=== PATIENT | male | born 1990 ===

== ENCOUNTER 2017-07-21 17:51 | Inpatient (IN) | payer OTHER, SELFPAY ==
[2017-07-21 17:52] VITALS: BMI 25.2
--- NOTE | 2017-07-21 20:38 | CT ---
EXAM: CT Head Without Intravenous Contrast EXAM DATE/TIME: 07/21/2017 6:34 PM CLINICAL HISTORY: The patient age is 27 years old and is male; Signs and symptoms; Dizziness and numbness / parasthesia; Right; Patient HX: Dizzy 2-3 days, numbness right side of face Facility exam id and description: Ct heads head w/o contrast TECHNIQUE: Axial computed tomography images of the head/brain without intravenous contrast. All CT scans at this facility use one or more dose reduction techniques, viz.: automated exposure control; ma/kV adjustment per patient size (including targeted exams where dose is matched to indication; i.e. head); or iterative reconstruction technique. COMPARISON: No relevant prior studies available. FINDINGS: Brain: Hypodense vasogenic edema or gliosis is identified within the left parietal white matter. Infection or underlying lesion cannot be excluded. The white-forrest differentiation is otherwise preserved. No acute intracranial hemorrhage is seen. Midline shift: There is no midline shift. Ventricles: No ventriculomegaly. Bones/joints: The calvarium demonstrates no evidence for a depressed fracture. Soft tissues: Calcifications and identified within the soft tissues of the left ear. Sinuses: Unremarkable as visualized. No acute sinusitis. Mastoid air cells: No mastoid effusion. IMPRESSION: 1. Hypodense vasogenic edema or gliosis is identified within the left parietal white matter. Infection or underlying lesion cannot be excluded. An MRI of the brain with/without contrast is recommended. 2. No acute intracranial hemorrhage.
[2017-07-21 21:43] LABS: BASO # 0.04 K/mm3 (0.0-2.0); BASO % 0.6 % (0.0-3.0); EOS # 0.1 (0.0-0.7); GRAN # 3.95 (1.4-6.5); GRAN % 57.6 % (50.0-68.0); HEMATOCRIT 42.9 % (42.0-52.0); LYMPH # 2.3 (1.2-3.4); LYMPH % 33.7 % (22.0-35.0); MEAN CELL VOLUME 90.7 fl (80.0-105.0); MEAN CORPUSCULAR HEMOGLOBIN 32.6 pg (25.0-35.0); MEAN CORPUSCULAR HGB CONC 35.9 g/dl (31.0-37.0); MEAN PLATELET VOLUME 10.5 fl (7.0-11.0); MONO # 0.4 (0.1-0.6); MONO % 6.1 % (1.0-6.0); RED CELL DISTRIBUTION WIDTH 12.1 % (11.5-14.5); WHITE BLOOD COUNT 6.9 10^3/ul (4.5-11.0)
[2017-07-21 21:53] LABS: ALB/GLOB RATIO 1.6 (1.1-1.8); ALKALINE PHOSPHATASE 63 U/L (38-126); ALT/SGPT 37 U/L (7-56); AST/SGOT 25 U/L (17-59); BILIRUBIN,TOTAL 0.8 mg/dL (0.2-1.3); BLOOD UREA NITROGEN 20 mg/dL (7-21); CALCIUM 9.9 mg/dL (8.4-10.5); CARBON DIOXIDE 32 mmol/L (21-33); CHLORIDE 101 mmol/L (98-107); GFR AFRICAN-AMERICAN > 60; GLUCOSE,RANDOM 110 mg/dL (70-110); POTASSIUM 4.5 mmol/L (3.6-5.0); SODIUM 141 mmol/L (132-148); TOTAL PROTEIN 7.9 g/dL (5.8-8.3)
--- NOTE | 2017-07-21 22:54 | ED PDOC ---
Arrival/HPI - General Chief Complaint: Weakness/Neurological Deficit Time Seen by Provider: 07/21/17 18:12 Historian: Patient - History of Present Illness Narrative History of Present Illness (Text): 07/21/17 22:54 27 year old male who presents to the ED complaining of right-sided facial numbness and dizziness for the past 2 days. Patient states when he stands up, he feels dizzy and near-syncopal. Patient states the whole right-sided of his face feels numb, including his jaw, cheek, and upper face, however he denies any facial weakness. Patient denies any recent fall or trauma. 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 Patient states he is otherwise healthy, denies any significant past medical history. Patient denies any nausea, vomiting, fever, chills, double vision, incontinence, cough, or any other complaints. Time/Duration: < week (2 days) Symptom Onset: Gradual Symptom Course: Unchanged Activities at Onset: Light Context: Home Past Medical History - Provider Review Nursing Documentation Reviewed: Yes - Psychiatric Hx Psychophysiologic Disorder: No Hx Substance Use: No - Surgical History Other/Comment: unspecified abdominal surgery Family/Social History - Physician Review Nursing Documentation Reviewed: Yes Family/Social History: Unknown Family HX Smoking Status: Never Smoked Hx Alcohol Use: No Hx Substance Use: No Allergies/Home Meds Allergies/Adverse Reactions: Allergies apple Allergy (Verified 07/21/17 17:59) RASH peanut Allergy (Verified 07/21/17 17:59) RASH pineapple Allergy (Verified 07/21/17 17:59) RASH Home Medications: Home Meds Medication Instructions Recorded Confirmed No Known Home Med 07/21/17 07/21/17 Review of Systems - Physician Review All systems were reviewed & negative as marked: Yes - Review of Systems Constitutional: Normal. absent: Fevers Eyes: Normal. absent: Vision Changes ENT: Normal Respiratory: Normal. absent: SOB, Cough Cardiovascular: Other (+near-syncopal). absent: Chest Pain Gastrointestinal: Normal. absent: Abdominal Pain, Vomiting Genitourinary Male: Normal. absent: Dysuria, Frequency, Hematuria, Urinary Output Changes Musculoskeletal: Normal. absent: Back Pain, Neck Pain Skin: Normal. absent: Rash Neurological: Headache, Dizziness, Other (+right-sided facial weakness) Endocrine: Normal Hemo/Lymphatic: Normal Psychiatric: Normal Physical Exam Vital Signs Reviewed: Yes Vital Signs Temp Pulse Resp BP Pulse Ox 07/22/17 00:17 82 16 126/84 100 07/21/17 23:52 80 16 125/75 99 07/21/17 21:52 79 16 124/77 99 07/21/17 19:52 83 16 125/77 98 07/21/17 18:00 97.9 F 80 16 123/79 99 Temperature: Afebrile Blood Pressure: Normal Pulse: Regular Respiratory Rate: Normal Appearance: Positive for: Well-Appearing, Non-Toxic, Comfortable Pain Distress: None Mental Status: Positive for: Alert and Oriented X 3 - Systems Exam Head: Present: Atraumatic, Normocephalic Pupils: Present: PERRL Extroacular Muscles: Present: Other (Questionable lateral nystagmus) Conjunctiva: Present: Normal Ears: Present: Normal, NORMAL TM, Normal Canal Mouth: Present: Moist Mucous Membranes Pharnyx: Present: Normal. No: ERYTHEMA, EXUDATE, TONSILS ENLARGED, Peritonsilar Swelling, Uvular Deviation, Muffled/Hoarse Voice, Strider, Soft Palate/Uvular Edema Nose (External): Present: Atraumatic Nose (Internal): Present: Other (Right-sided nasal congestion) Neck: Present: Normal Range of Motion. No: Meningeal Signs, MIDLINE TENDERNESS , Paraspinal Tenderness Respiratory/Chest: Present: Clear to Auscultation, Good Air Exchange. No: Respiratory Distress, Accessory Muscle Use Cardiovascular: Present: Regular Rate and Rhythm, Normal S1, S2. No: Murmurs Abdomen: Present: Normal Bowel Sounds. No: Tenderness, Distention, Peritoneal Signs Upper Extremity: Present: Normal Inspection, Normal ROM, NORMAL PULSES, Neurovascularly Intact, Capillary Refill < 2s. No: Cyanosis, Edema, Tenderness , Swelling, Temperature Abnormalties Lower Extremity: Present: Normal Inspection, NORMAL PULSES, Normal ROM, Neurovascularly Intact, Capillary Refill < 2 s. No: Edema, Tenderness, Swelling , Erythema, Deformity, Temperature Abnormalties Neurological: Present: GCS=15, CN II-XII Intact, Speech Normal, Motor Func Grossly Intact (5/5 strength bilateral upper extremities), Normal Cerebellar Funct, Gait Normal (No significant ataxia upon walking), Memory Normal, Other ( Right-sided dysmetria finger to nose, ). No: Normal Sensory Function (Numbness to right face as compared to left face) Skin: Present: Warm, Dry, Normal Color. No: Rashes Psychiatric: Present: Alert, Oriented x 3, Normal Insight, Normal Concentration Medical Decision Making ED Course and Treatment: 07/21/17 22:54 Impression: 27 year old male c/o right-sided facial weakness and dizziness. Plan: -- CT Head w/o contrast -- Labs, HIV -- Reassess and disposition Progress Notes: CT scan shows mass in left parietal area, glious vs. infectious. Pt does not have a PMD or insurance, therefore pt will be admitted for MRI, neurological consult, and workup of mass due to acute symptoms. Case was discussed with hospitalist medical director and house physician Dr. Ramos. Pt will be admitted to the hospitalist service. - Lab Interpretations Lab Results: 07/21/17 21:20 07/21/17 21:20 Lab Results 07/21/17 21:20: Sodium 141, Potassium 4.5, Chloride 101, Carbon Dioxide 32, Anion Gap 13, BUN 20, Creatinine 1.1, Est GFR ( Amer) > 60, Est GFR (Non- Af Amer) > 60, Random Glucose 110, Calcium 9.9, Total Bilirubin 0.8, AST 25, ALT 37, Alkaline Phosphatase 63, Total Protein 7.9, Albumin 4.8, Globulin 3.1, Albumin/Globulin Ratio 1.6 07/21/17 21:20: RPR Nonreactive 07/21/17 21:20: HIV 1&2 Antibody Screen Negative 07/21/17 21:20: WBC 6.9 D, RBC 4.73, Hgb 15.4, Hct 42.9, MCV 90.7, MCH 32.6, MCHC 35.9, RDW 12.1, Plt Count 184, MPV 10.5, Gran % 57.6, Lymph % (Auto) 33.7, [place] % (Auto) 6.1 H, Eos % (Auto) 2.0, Baso % (Auto) 0.6, Gran # 3.95, Lymph # 2.3, [place] # 0.4, Eos # 0.1, Baso # 0.04 07/21/17 00:00: Hepatitis A IgM Ab Negative, Hep Bs Antigen Negative, Hep B Core IgM Ab Negative, Hepatitis C Antibody Negative I have reviewed the lab results: Yes - RAD Interpretation Narrative RAD Interpretations (Text): CT Head shows: Brain: Hypodense vasogenic edema or gliosis is identified within the left parietal white matter. Infection or underlying lesion cannot be excluded. The white-forrest differentiation is otherwise preserved. No acute intracranial hemorrhage is seen. Midline shift: There is no midline shift. Ventricles: No ventriculomegaly. Bones/joints: The calvarium demonstrates no evidence for a depressed fracture. Brain: Hypodense vasogenic edema or gliosis is identified within the left parietal white matter. Infection or underlying lesion cannot be excluded. The white-forrest differentiation is otherwise preserved. No acute intracranial hemorrhage is seen. Midline shift: There is no midline shift. Ventricles: No ventriculomegaly. Bones/joints: The calvarium demonstrates no evidence for a depressed fracture. Radiology Orders: 07/21/17 18:34 HEAD W/O CONTRAST [CT] Stat Manager College: Radiologist - Medication Orders Current Medication Orders: Acetaminophen (Tylenol 325mg Tab) 650 mg PO Q6H PRN PRN Reason: Headache Methylprednisolone 1 gm/ (Sodium Chloride) 250 mls @ 500 mls/hr IV DAILY [facility] Stop: 07/24/17 10:29 Last Admin: 07/22/17 14:31 Dose: 500 mls/hr eMAR Start Stop Document 07/22/17 14:31 LMN (Rec: 07/22/17 14:31 LMN [facility] [id number]) Intravenous Solution Start Date 07/22/17 Start Time 14:31 Pantoprazole Sodium (Protonix Ec Tab) 40 mg PO 0600 [facility] Last Admin: 07/22/17 07:38 Dose: 40 mg Discontinued Medications Acetaminophen (Tylenol 325mg Tab) 325 mg PO ONCE ONE Stop: 07/22/17 07:21 Last Admin: 07/22/17 07:38 Dose: Acetaminophen (Tylenol 325mg Tab) 650 mg PO ONCE ONE Stop: 07/22/17 08:56 Last Admin: 07/22/17 08:57 Dose: 650 mg MAR Pain/Vitals Document 07/22/17 08:57 LMN (Rec: 07/22/17 08:57 [place] [facility] [id number] Pain Reassessment Is This A Pain ReAssessment? No Presence of Pain Presence of Pain Yes Re-Assess: MAR Pain/Vitals Document 07/22/17 09:57 LMN (Rec: 07/22/17 11:14 [place] [facility] [id number] Pain Reassessment Is This A Pain ReAssessment? Yes Sleep Is patient sleeping during reassessment? No Presence of Pain Presence of Pain Yes Pain Scale Used Pain Scale Used Numeric Location Left, Right or Bilateral Bilateral Pain Location Body Home Hospice Rn Description Throbbing Magnesium Sulfate 2 gm/ Sodium (Chloride) 104 mls @ 102 mls/hr IVPB ONCE ONE Stop: 07/22/17 08:39 Last Admin: 07/22/17 12:25 Dose: 102 mls/hr eMAR Start Stop Document 07/22/17 12:25 LMN (Rec: 07/22/17 13:14 LMN [facility] [id number] Intravenous Solution Start Date 07/22/17 Start Time 12:25 Valproate Sodium 500 mg/ (Sodium Chloride) 105 mls @ 100 mls/hr IVPB Q8 [facility] Last Admin: 07/22/17 11:12 Dose: 100 mls/hr eMAR Start Stop Document 07/22/17 11:12 LMN (Rec: 07/22/17 11:13 LMN [facility] [id number] Intravenous Solution Start Date 07/22/17 Start Time 11:12 Levetiracetam (Keppra) 500 mg PO STAT STA Stop: 07/21/17 23:50 Last Admin: 07/22/17 00:08 Dose: 500 mg Lidocaine HCl (Lidocaine 1% (20ml)) 20 ml IJ ONCE STA Stop: 07/22/17 13:25 - Scribe Statement The provider has reviewed the documentation as recorded by the Janell Gtz Provider Scribe Attestation: All medical record entries made by the Scribe were at my direction and personally dictated by me. I have reviewed the chart and agree that the record accurately reflects my personal performance of the history, physical exam, medical decision making, and the department course for this patient. I have also personally directed, reviewed, and agree with the discharge instructions and disposition. Disposition/Present on Arrival - Present on Arrival Any Indicators Present on Arrival: No History of DVT/PE: No History of Uncontrolled Diabetes: No Urinary Catheter: No History of Decub. Ulcer: No History Surgical Site Infection Following: None - Disposition Have Diagnosis and Disposition been Completed?: Yes Diagnosis: Mass, brain Disposition: HOSPITALIZED Disposition Time: 22:00 Patient Plan: Admission Patient Problems: Current Active Problems Problem Status Onset Demyelinating changes in brain Acute Condition: GOOD
--- NOTE | 2017-07-21 23:46 | CP.PCM.HP ---
History of Present Illness - History of Present Illness History of Present Illness: CC: "I was feeling dizzy" HPI: Patient is a 27 year old male with past medical history asthma presents to the ED for dizziness and right facial numbness. Patient states that he was experiencing constant right sided facial numbness for the past few days. Never experienced this before. The entire right of his face is numb including forehead cheek and jaw area. After the onset of the facial numbness, patient states that he has been intermittently feeling dizzy. Feels like he is spinning. 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 Denies any fevers, chills, N/V, headaches, weakness, facial pain, cp, palpitations, sob, abdominal pain, urinary symptoms, changes in bowel habits. Denies any recent falls or trauma or hx of concussions. PMD: None Allergies: apple, peanut, pineapple Medications: Albuterol (last use a few years ago) Medical Hx: Asthma Surgical Hx: Cholecystectomy 9 years ago Social Hx: Denies alcohol, tobacco, drugs use; works at a [id number], denies having multiple sexual partners Family Hx: Denies any hx of cancer Present on Admission - Present on Admission Any Indicators Present on Admission: No Review of Systems - Review of Systems All systems: reviewed and no additional remarkable complaints except - Constitutional Constitutional: absent: Chills, Fever - EENT Eyes: absent: Blurred Vision, Change in Vision Ears: Dizziness. absent: Abnormal Hearing, Disequilibrium - Cardiovascular Cardiovascular: absent: Chest Pain, Dyspnea, Dyspnea on Exertion, Lightheadedness, Palpitations - Respiratory Respiratory: absent: Cough, Dyspnea, Wheezing - Gastrointestinal Gastrointestinal: absent: Abdominal Pain, Change in Bowel Habits, Constipation, Nausea, Vomiting - Genitourinary Genitourinary: absent: Dysuria, Hematuria - Musculoskeletal Musculoskeletal: Numbness. absent: Abnormal Gait, Limited Range of Motion, Tingling - Neurological Neurological: Dizziness, Numbness. absent: Frequent Falls, Headaches, Tingling , Tremor - Psychiatric Psychiatric: absent: Anxiety, Depression Past Patient History - Past Social History Smoking Status: Never Smoked - PSYCHIATRIC Hx Psychophysiologic Disorder: No Hx Substance Use: No Meds Allergies/Adverse Reactions: Allergies Allergy/AdvReac Type Severity Reaction Status Date / Time apple Allergy RASH Verified 07/21/17 17:59 peanut Allergy RASH Verified 07/21/17 17:59 pineapple Allergy RASH Verified 07/21/17 17:59 Physical Exam - Constitutional Appears: Well, Non-toxic, No Acute Distress - Head Exam Head Exam: ATRAUMATIC, NORMAL INSPECTION - Eye Exam Eye Exam: EOMI, Normal appearance. absent: Conjunctival injection, Nystagmus Pupil Exam: NORMAL ACCOMODATION, PERRL - ENT Exam ENT Exam: Mucous Membranes Moist, Normal Oropharynx. absent: Normal External Ear Exam Additional comments: Deformity of Left ear noted : Perichondrial hematoma - Neck Exam Neck exam: Positive for: Full Rom - Respiratory Exam Respiratory Exam: Clear to Auscultation Bilateral, NORMAL BREATHING PATTERN. absent: Rhonchi, Wheezes - Cardiovascular Exam Cardiovascular Exam: REGULAR RHYTHM, +S1, +S2 - GI/Abdominal Exam GI & Abdominal Exam: Normal Bowel Sounds, Soft. absent: Guarding, Rebound, Rigid, Tenderness - Extremities Exam Extremities exam: Positive for: full ROM, normal inspection, pedal pulses present. Negative for: calf tenderness, pedal edema, tenderness - Back Exam Back exam: NORMAL INSPECTION. absent: CVA tenderness (L), CVA tenderness (R), rash noted - Neurological Exam Neurological exam: Alert, CN II-XII Intact, Oriented x3, Reflexes Normal - Psychiatric Exam Psychiatric exam: Normal Affect, Normal Mood - Skin Skin Exam: Dry, Normal Color, Warm Additional comments: Multiple tattoos on chest, arms, and back Results - Vital Signs Recent Vital Signs: Last Vital Signs Temp 97.9 F 07/21/17 18:00 Pulse 80 07/21/17 18:00 Resp 16 07/21/17 18:00 BP 123/79 07/21/17 18:00 Pulse Ox 99 07/21/17 18:00 - Labs Result Diagrams: 07/21/17 21:20 07/21/17 21:20 Labs: Laboratory Results - last 24 hr 07/21/17 07/21/17 21:20 21:20 WBC 6.9 D RBC 4.73 Hgb 15.4 Hct 42.9 MCV 90.7 MCH 32.6 MCHC 35.9 RDW 12.1 Plt Count 184 MPV 10.5 Gran % 57.6 Lymph % (Auto) 33.7 [place] % (Auto) 6.1 H Eos % (Auto) 2.0 Baso % (Auto) 0.6 Gran # 3.95 Lymph # 2.3 [place] # 0.4 Eos # 0.1 Baso # 0.04 Sodium 141 Potassium 4.5 Chloride 101 Carbon Dioxide 32 Anion Gap 13 BUN 20 Creatinine 1.1 Est GFR ( Amer) > 60 Est GFR (Non-Af Amer) > 60 Random Glucose 110 Calcium 9.9 Total Bilirubin 0.8 AST 25 ALT 37 Alkaline Phosphatase 63 Total Protein 7.9 Albumin 4.8 Globulin 3.1 Albumin/Globulin Ratio 1.6 Assessment & Plan - Assessment and Plan (Free Text) Assessment: 27 year old male with past medical history of asthma presents with dizziness and right sided facial numbness. Plan: 1. Right Sided Facial Numbness and dizziness -Likely 2/2 brain lesion r/o mild traumatic brain injury vs infectious etiology -Stable, afebrile -Will Admit inpatient -CT head showing hypodense vasogenic edema or gliosis within left parietal white matter -MRI brain with contrast ordered, CXR ordered -Keppra 500mg PO STAT for seizure prophylaxis, then 500mg BID -F/U am Labs, HIV, Hep panel, ESR, CRP, RPR, lyme titers -Orthostatics ordered -Seizure precautions, fall precautions -Neuro checks q4H -Neurology consulted, f/u recommendations -ID consulted, f/u recommendations GI/DVT ppx -Protonix 40mg daily -SCDs Plan discussed with Dr Ramos
[2017-07-22 06:56] LABS: BASO # 0.03 K/mm3 (0.0-2.0); BASO % 0.7 % (0.0-3.0); EOS # 0.1 (0.0-0.7); GRAN # 2.26 (1.4-6.5); GRAN % 51.5 % (50.0-68.0); HEMATOCRIT 40.8 % (42.0-52.0); LYMPH # 1.5 (1.2-3.4); LYMPH % 35.2 % (22.0-35.0); MEAN CELL VOLUME 90.3 fl (80.0-105.0); MEAN CORPUSCULAR HEMOGLOBIN 31.4 pg (25.0-35.0); MEAN CORPUSCULAR HGB CONC 34.8 g/dl (31.0-37.0); MEAN PLATELET VOLUME 10.5 fl (7.0-11.0); MONO # 0.4 (0.1-0.6); MONO % 9.6 % (1.0-6.0); RED CELL DISTRIBUTION WIDTH 12.2 % (11.5-14.5); WHITE BLOOD COUNT 4.4 10^3/ul (4.5-11.0)
[2017-07-22 07:13] LABS: ALB/GLOB RATIO 1.4 (1.1-1.8); ALKALINE PHOSPHATASE 62 U/L (38-126); ALT/SGPT 38 U/L (7-56); AST/SGOT 20 U/L (17-59); BILIRUBIN,TOTAL 0.5 mg/dL (0.2-1.3); BLOOD UREA NITROGEN 22 mg/dL (7-21); CALCIUM 9.3 mg/dL (8.4-10.5); CARBON DIOXIDE 29 mmol/L (21-33); CHLORIDE 106 mmol/L (98-107); GFR AFRICAN-AMERICAN > 60; GLUCOSE,RANDOM 97 mg/dL (70-110); MAGNESIUM 2.2 mg/dL (1.7-2.2); PHOSPHOROUS 4.7 mg/dL (2.5-4.5); POTASSIUM 3.7 mmol/L (3.6-5.0); SODIUM 142 mmol/L (132-148)
[2017-07-22] MEDS ORDERED: Magnesium Sulfate 2 GM in Sodium Chloride 0.9% 100 ML IVPB ONE ×2 (07:34→07:38)
[2017-07-22] MEDS: Pantoprazole 40 mg EC Tab PO SCH (07:38)
[2017-07-22] MEDS ORDERED: Valproate 500 MG in Sodium Chloride 0.9% 100 ML IVPB SCH (07:45)
[2017-07-22] MEDS ORDERED: Gadodiamide 287 MG/ML VIAL (15ML) IV ONE (10:21)
--- NOTE | 2017-07-22 11:27 | MRI ---
PROCEDURE: MRI BRAIN WITH AND WITHOUT CONTRAST HISTORY: r/o brain mass COMPARISON: CT 07/21/2017 TECHNIQUE: Multiplanar, multisequence MR images of the brain were obtained with and without intravenous contrast enhancement. 15 cc of Omniscan FINDINGS: HEMORRHAGE: None DWI: No evidence of an acute or early subacute infarction. BRAIN PARENCHYMA: There is a large area of abnormal signal intensity in the left parietal white matter which corresponds to the CT finding. This measures 13 x 23 mm. In addition there is extensive periventricular white matter abnormality especially along the temporal and occipital horns of both lateral ventricles. Smaller focal lesions are seen in the deep white matter. The findings are suspicious for demyelinating disease. There is no evidence of a discrete mass. There is no evidence of an enhancing mass. There is minimal linear hemosiderin deposition at the edge of the larger left parietal lesion. This can be seen on image 17 series 7. This is consistent with an old hemorrhage. There is also a focal lesion in the right inferior cerebellar peduncle seen on image 6 of series 4 and 5. ENHANCEMENT: No abnormal intracranial enhancement. VENTRICLES: Unremarkable. No hydrocephalus. CRANIUM: Unremarkable. ORBITS: Grossly unremarkable. PARANASAL SINUSES/MASTOIDS: Clear VASCULAR SYSTEM: Skull base flow voids intact. OTHER FINDINGS: None . IMPRESSION: Confluent white matter abnormalities in the occipital and temporal horns of both ventricles. Large white matter lesion in the left parietal white matter. There is also a lesion in the right inferior cerebellar peduncle. Findings are suspicious for demyelinating disease.
--- NOTE | 2017-07-22 12:08 | RAD ---
HISTORY: Possible brain mass, r/o mets COMPARISON: No prior. TECHNIQUE: Chest PA and lateral FINDINGS: LUNGS: No active pulmonary disease. PLEURA: No significant pleural effusion identified. No pneumothorax apparent. CARDIOVASCULAR: Normal. OSSEOUS STRUCTURES: No significant abnormalities. VISUALIZED UPPER ABDOMEN: Normal. OTHER FINDINGS: None. IMPRESSION: No active disease.
[2017-07-22] MEDS ORDERED: Lidocaine 1% Inj (20ml) IJ STA (13:24)
--- NOTE | 2017-07-22 13:32 | CP.PCM.PN ---
<Varghese Orellana - Last Filed: 07/22/17 13:29> Subjective - Date & Time of Evaluation Date of Evaluation: 07/22/17 Time of Evaluation: 13:29 - Subjective Subjective: Medicine Progress Note: Pt seen and examined at bedside. Pt states that he does not feel dizzy at present, but feels dizzy if he sits up to fast. Pt states he also has a CASTLE. Pt denied CP, SOB, nausea, vomiting, diarrhea, abdominal pain, constipation, fever , chills, tinnitus, or fatigue. Objective - Vital Signs/Intake and Output Vital Signs (last 24 hours): Temp Pulse Resp BP Pulse Ox 97.8 F 62 16 110/62 98 07/22/17 07:30 07/22/17 07:30 07/22/17 07:30 07/22/17 07:30 07/22/17 07:30 Intake and Output: 07/22/17 07/22/17 06:59 18:59 Intake Total 120 Balance 120 - Medications Medications: Current Medications Acetaminophen (Tylenol 325mg Tab) 650 mg PO Q6H PRN PRN Reason: Headache Valproate Sodium 500 mg/ (Sodium Chloride) 105 mls @ 100 mls/hr IVPB Q8 [facility] Last Admin: 07/22/17 11:12 Dose: 100 mls/hr Methylprednisolone 1 gm/ (Sodium Chloride) 250 mls @ 500 mls/hr IV DAILY [facility] Stop: 07/24/17 10:29 Pantoprazole Sodium (Protonix Ec Tab) 40 mg PO 0600 [facility] Last Admin: 07/22/17 07:38 Dose: 40 mg - Labs Labs: 07/22/17 06:20 07/22/17 06:20 - Constitutional Appears: No Acute Distress - Head Exam Head Exam: ATRAUMATIC, NORMAL INSPECTION, NORMOCEPHALIC - Eye Exam Eye Exam: EOMI, Normal appearance, PERRL. absent: Nystagmus - ENT Exam ENT Exam: Mucous Membranes Moist, Normal Oropharynx. absent: Normal External Ear Exam (left ear edema) - Neck Exam Neck Exam: Full ROM. absent: Lymphadenopathy, Tenderness, Thyromegaly - Respiratory Exam Respiratory Exam: Clear to Ausculation Bilateral. absent: Rales, Rhonchi, Wheezes - Cardiovascular Exam Cardiovascular Exam: RRR, +S1, +S2. absent: Gallop, Rubs, Murmur - GI/Abdominal Exam GI & Abdominal Exam: Soft. absent: Distended, Guarding, Tenderness, Mass, Rebound - Extremities Exam Extremities Exam: Normal Inspection - Back Exam Back Exam: NORMAL INSPECTION - Neurological Exam Neurological Exam: Alert, Awake, CN II-XII Intact (except for CN 7 on the right mostly in maxillary region), Normal Gait, Oriented x3, Reflexes Normal. absent : Motor Sensory Deficit Neuro motor strength exam: Left Upper Extremity: 5, Right Upper Extremity: 5, Left Lower Extremity: 5, Right Lower Extremity: 5 Additional comments: Right sided facial numbness, no facial asymmetry - Psychiatric Exam Psychiatric exam: Normal Affect, Normal Mood - Skin Skin Exam: Dry, Intact, Normal Color, Warm Assessment and Plan - Assessment and Plan (Free Text) Assessment: 27 year old male with past medical history of asthma presents with dizziness and right sided facial numbness. Plan: 1. Right Sided Facial Numbness and dizziness -Likely 2/2 brain lesion r/o mild traumatic brain injury vs infectious etiology -CT head showing hypodense vasogenic edema or gliosis within left parietal white matter -MRI showed confluent white matter abnormalities in the occipital and temporal horns of both ventricles. Large white matter lesion in the left parietal white matter. There is also a lesion in the right inferior cerebellar peduncle. Findings suspicious for demyelinating disease. -CXR negative -ESR, CRP WNL -Hep panel, HIV negative -F/U RPR, lyme titers, orthostatics -Seizure precautions, fall precautions -Neurology consulted F/u EEG Solumedrol 1 gm IVPB daily -ID consulted, f/u recommendations GI/DVT ppx -Protonix 40mg daily -SCDs Pt seen and discussed in detail with Dr. Arredondo. Adair Orellana, PGY1 <Fabian Arredondo - Last Filed: 07/22/17 17:36> Objective - Vital Signs/Intake and Output Vital Signs (last 24 hours): Temp Pulse Resp BP Pulse Ox 97.8 F 62 16 110/62 98 07/22/17 07:30 07/22/17 07:30 07/22/17 07:30 07/22/17 07:30 07/22/17 07:30 Intake and Output: 07/22/17 07/22/17 06:59 18:59 Intake Total 120 480 Balance 120 480 - Medications Medications: Current Medications Acetaminophen (Tylenol 325mg Tab) 650 mg PO Q6H PRN PRN Reason: Headache Methylprednisolone 1 gm/ (Sodium Chloride) 250 mls @ 500 mls/hr IV DAILY [facility] Stop: 07/24/17 10:29 Last Admin: 07/22/17 14:31 Dose: 500 mls/hr Pantoprazole Sodium (Protonix Ec Tab) 40 mg PO 0600 [facility] Last Admin: 07/22/17 07:38 Dose: 40 mg - Labs Labs: 07/22/17 06:20 07/22/17 06:20 Attending/Attestation - Attestation I have personally seen and examined this patient.: Yes I have fully participated in the care of the patient.: Yes I have reviewed all pertinent clinical information, including history, physical exam and plan: Yes Notes (Text): 07/22/17 17:32 Patient was seen and examined with medical geneticist. Agreed with resident assessment and plan. 27 year old male with past medical history of asthma presents with dizziness and right sided facial numbness, has sensory lose on right side of the face.There is no focal deficit.MRI finding are suggestive of Multiple sclerosis , has been started on IV steroid by Neurology, plan for lumber puncture today, we will follow up results. Management plan was discussed in detail with patient Education was provided.
--- NOTE | 2017-07-22 13:50 | PCM.EEG ---
Electroencephalogram Report - Electroencephalogram Report Procedure Date: 07/22/17 Interpretation: Indication: Dizziness. Medications were reviewed. Technical: This is a digitally recorded electroencephalogram. The international 10-20 electrode placement system is used for scalp electrode placement. Eighteen channels of scalp EEG are recorded One channel was used for EOG. Another channel was used for for ECG. The data are stored digitally and reviewed in reformatted montages for optimal display. Background: 9 to 10 hertz alpha activity was seen. Maximal over the posterior head region. These activities are symmetric on both sides. They attenuated with eye opening. Small amount of beta activities are seen. Description: No focal slowing was seen. No seizure like activity was observed during this recording. Patient entered into periods of drowsiness and light sleep. No abnormality was seen. Impression: Normal EEG. No focal slowing no seizure like activity was observed. Correlation with clinical findings is needed.
[2017-07-22] MEDS: methylPREDNISolone 1 GM in Sodium Chloride 0.9% 250 ML IV SCH (14:31)
--- NOTE | 2017-07-22 14:31 | CP.PCM.CON ---
History of Present Illness - History of Present Illness History of Present Illness: Mr. 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 In addition, he has been complaining of feeling dizzy, light-headed and unstable gait at times. He complains of an 8/10 in severity bifrontal headache. Initial CT scan of the head was concerning for hypodensity in the parietal lobe, so an MRI of the brain was done and demonstrated areas of possible demyelination in the left parietal lobe and periventricular regions. The patient states that he has not had any previous such episodes, but he does have occasional headaches. He denied visual changes, weakness, other sensory changes, back aches, abdominal pain, recent illness, recent head injury, or other associated symptoms. Review of Systems - Review of Systems All systems: reviewed and no additional remarkable complaints except Past Patient History - Past Social History Smoking Status: Never Smoked - MUSCULOSKELETAL/RHEUMATOLOGICAL Hx Falls: No - PSYCHIATRIC Hx Psychophysiologic Disorder: No Hx Substance Use: No - SURGICAL HISTORY Hx Cholecystectomy: Yes Meds Allergies/Adverse Reactions: Allergies Allergy/AdvReac Type Severity Reaction Status Date / Time apple Allergy RASH Verified 07/21/17 17:59 peanut Allergy RASH Verified 07/21/17 17:59 pineapple Allergy RASH Verified 07/21/17 17:59 - Medications Medications: Current Medications Acetaminophen (Tylenol 325mg Tab) 650 mg PO Q6H PRN PRN Reason: Headache Valproate Sodium 500 mg/ (Sodium Chloride) 105 mls @ 100 mls/hr IVPB Q8 [facility] Last Admin: 07/22/17 11:12 Dose: 100 mls/hr Methylprednisolone 1 gm/ (Sodium Chloride) 250 mls @ 500 mls/hr IV DAILY [facility] Stop: 07/24/17 10:29 Pantoprazole Sodium (Protonix Ec Tab) 40 mg PO 0600 [facility] Last Admin: 07/22/17 07:38 Dose: 40 mg Physical Exam - Constitutional Appears: Well - Head Exam Head Exam: ATRAUMATIC, NORMAL INSPECTION, NORMOCEPHALIC - Eye Exam Eye Exam: EOMI, Normal appearance, PERRL - ENT Exam ENT Exam: Mucous Membranes Moist, Normal Exam - Neck Exam Neck exam: Positive for: Normal Inspection - Respiratory Exam Respiratory Exam: Clear to Auscultation Bilateral, NORMAL BREATHING PATTERN - Cardiovascular Exam Cardiovascular Exam: REGULAR RHYTHM, +S1, +S2 - GI/Abdominal Exam GI & Abdominal Exam: Normal Bowel Sounds, Soft. absent: Tenderness - Rectal Exam Rectal Exam: Deferred - Extremities Exam Extremities exam: Positive for: normal inspection - Back Exam Back exam: NORMAL INSPECTION - Neurological Exam Neurological exam: Abnormal Gait, Alert, CN II-XII Intact, Oriented x3 - Expanded Neurological Exam Expanded Patient oriented to: person, place, time Cranial nerves: EOM's Intact: Normal, Facial P[place]y w/Forehead Movement: Normal , Facial [place] w/o Forehead Movement: Normal, Facial Sensation: Abnormal Right , Gag Reflex: Normal, Nystagmus: Normal, Tongue Deviation: Normal Ataxia: Yes (On the right side) Cerebellar Function: Finger to Nose: Abnormal Right, Heel to [place]: Abnormal Right Upper motor neuron: Babinski Sign: Normal Sensory exam: Lower Extremity Light Touch: Abnormal Right, Lower Extremity Pin Prick: Abnormal Right Neuro motor strength exam: Left Upper Extremity: 5, Right Upper Extremity: 5, Left Lower Extremity: 5, Right Lower Extremity: 5 DTR: Bicep Left: 2+, Bicep Right: 3+, Brachioradialis Left: 2+, Brachioradialis Right: 3+, Patellar Left: 2+, Patellar Right: 3+ - Psychiatric Exam Psychiatric exam: Normal Affect, Normal Mood - Skin Skin Exam: Dry, Intact, Normal Color, Warm Results - Vital Signs Recent Vital Signs: Last Vital Signs Temp 97.8 F 07/22/17 07:30 Pulse 62 07/22/17 07:30 Resp 16 07/22/17 07:30 BP 110/62 07/22/17 07:30 Pulse Ox 98 07/22/17 07:30 - Labs Result Diagrams: 07/22/17 06:20 07/22/17 06:20 Labs: Laboratory Results - last 24 hr 07/22/17 07/22/17 07/22/17 06:20 06:20 06:20 WBC 4.4 L D RBC 4.52 Hgb 14.2 Hct 40.8 L MCV 90.3 MCH 31.4 MCHC 34.8 RDW 12.2 Plt Count 169 MPV 10.5 Gran % 51.5 Lymph % (Auto) 35.2 H [place] % (Auto) 9.6 H Eos % (Auto) 3.0 Baso % (Auto) 0.7 Gran # 2.26 Lymph # 1.5 [place] # 0.4 Eos # 0.1 Baso # 0.03 ESR 6 Sodium 142 Potassium 3.7 Chloride 106 Carbon Dioxide 29 Anion Gap 11 BUN 22 H Creatinine 1.0 Est GFR ( Amer) > 60 Est GFR (Non-Af Amer) > 60 Random Glucose 97 Calcium 9.3 Phosphorus 4.7 H Magnesium 2.2 Total Bilirubin 0.5 AST 20 ALT 38 Alkaline Phosphatase 62 C-React Prot High Sens Total Protein 7.0 Albumin 4.1 Globulin 2.9 Albumin/Globulin Ratio 1.4 07/22/17 06:20 WBC RBC Hgb Hct MCV MCH MCHC RDW Plt Count MPV Gran % Lymph % (Auto) [place] % (Auto) Eos % (Auto) Baso % (Auto) Gran # Lymph # [place] # Eos # Baso # ESR Sodium Potassium Chloride Carbon Dioxide Anion Gap BUN Creatinine Est GFR ( Amer) Est GFR (Non-Af Amer) Random Glucose Calcium Phosphorus Magnesium Total Bilirubin AST ALT Alkaline Phosphatase C-React Prot High Sens 0.52 L Total Protein Albumin Globulin Albumin/Globulin Ratio Assessment & Plan (1) Demyelinating changes in brain Assessment and Plan: This is concerning for multiple sclerosis. I recommend the followin. Treat acute episode with solumedrol 1 gram IV for 3 days, and consider starting snf treatment 2. LP to evaluate for myelin basic protein, oligoclonal bands, IgG index, etc. 3. MRI of the total spine with and without contrast for further evaluation 4. PT/OT eval and treatment 5. Treat headache with magnesium sulfate 2 grams IV and depakote 500 mg IV once 6. Fluids and diet as appropriate 7. Infectious and ID work-up 8. Case management consult Thank you. Status: Acute Priority: High
--- NOTE | 2017-07-23 | CP.PCM.CON ---
History of Present Illness - History of Present Illness History of Present Illness: Infectious Disease Consulation: July 22, 2017 27 yo male with presentation of right sided facial numbness and dizziness. 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 No fevers or chills. CT of the head done and MRI as well. Studies strongly suggest demyelinating disease with large white matter abnormalities. Cannot rule out infectious or viral etiology. For lumbar puncture. RPR, HIV, and Hepatitis studies negative. On IV steroids. No leukocytosis. Afebrile. PMHx: Asthma PSHx: Cholecystectomy 9 years ago. Allergies: Apples, Peanuts, Pineapple Social Hx: No tobacco, EtOH, or Illicit drug use. 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 Single sexual partner. Active Medications Acetaminophen (Tylenol 325mg Tab) 650 mg PO Q6H PRN PRN Reason: Headache Methylprednisolone 1 gm/ (Sodium Chloride) 250 mls @ 500 mls/hr IV DAILY [facility] Stop: 07/24/17 10:29 Last Admin: 07/22/17 14:31 Dose: 500 mls/hr Pantoprazole Sodium (Protonix Ec Tab) 40 mg PO 0600 [facility] Last Admin: 07/22/17 07:38 Dose: 40 mg Family Hx: None given ROS: Dizziness, facial numbness. No fevers, nausea, vomiting, diarrhea, headaches, dizziness, chest pain, abdominal pain, melena, hematuria, hematemesis, hematochezia, depression, anxiety Past Patient History - Past Social History Smoking Status: Never Smoked - MUSCULOSKELETAL/RHEUMATOLOGICAL Hx Falls: No - PSYCHIATRIC Hx Psychophysiologic Disorder: No Hx Substance Use: No - SURGICAL HISTORY Other/Comment: unspecified abdominal surgery Meds Allergies/Adverse Reactions: Allergies Allergy/AdvReac Type Severity Reaction Status Date / Time apple Allergy RASH Verified 07/21/17 17:59 peanut Allergy RASH Verified 07/21/17 17:59 pineapple Allergy RASH Verified 07/21/17 17:59 - Medications Medications: Current Medications Acetaminophen (Tylenol 325mg Tab) 650 mg PO Q6H PRN PRN Reason: Headache Methylprednisolone 1 gm/ (Sodium Chloride) 250 mls @ 500 mls/hr IV DAILY [facility] Stop: 07/24/17 10:29 Last Admin: 07/22/17 14:31 Dose: 500 mls/hr Pantoprazole Sodium (Protonix Ec Tab) 40 mg PO 0600 [facility] Last Admin: 07/22/17 07:38 Dose: 40 mg Physical Exam - Constitutional Appears: Non-toxic, No Acute Distress - Head Exam Head Exam: ATRAUMATIC, NORMOCEPHALIC - Eye Exam Eye Exam: EOMI, PERRL Pupil Exam: NORMAL ACCOMODATION, PERRL - ENT Exam ENT Exam: Mucous Membranes Moist, TM's Normal Bilaterally Additional comments: Deformity of Left ear noted : Perichondrial hematoma - Neck Exam Neck exam: Positive for: Full Rom, Normal Inspection - Respiratory Exam Respiratory Exam: Clear to Auscultation Bilateral, NORMAL BREATHING PATTERN. absent: Rales, Rhonchi, Wheezes - Cardiovascular Exam Cardiovascular Exam: REGULAR RHYTHM, RRR, +S1, +S2 - GI/Abdominal Exam GI & Abdominal Exam: Normal Bowel Sounds, Soft. absent: Distended, Tenderness - Extremities Exam Extremities exam: Positive for: full ROM, normal inspection - Neurological Exam Neurological exam: Alert, Oriented x3 Additional comments: right facial numbness - Psychiatric Exam Psychiatric exam: Normal Affect, Normal Mood - Skin Skin Exam: Intact, Normal Color Results - Vital Signs Recent Vital Signs: Last Vital Signs Temp 97.7 F 07/22/17 16:00 Pulse 73 07/22/17 16:00 Resp 18 07/22/17 16:00 BP 126/83 07/22/17 16:00 Pulse Ox 100 07/22/17 16:00 - Labs Result Diagrams: 07/22/17 06:20 07/22/17 06:20 Labs: Laboratory Results - last 24 hr 07/22/17 07/22/17 07/22/17 06:20 06:20 06:20 WBC 4.4 L D RBC 4.52 Hgb 14.2 Hct 40.8 L MCV 90.3 MCH 31.4 MCHC 34.8 RDW 12.2 Plt Count 169 MPV 10.5 Gran % 51.5 Lymph % (Auto) 35.2 H [place] % (Auto) 9.6 H Eos % (Auto) 3.0 Baso % (Auto) 0.7 Gran # 2.26 Lymph # 1.5 [place] # 0.4 Eos # 0.1 Baso # 0.03 ESR 6 Sodium 142 Potassium 3.7 Chloride 106 Carbon Dioxide 29 Anion Gap 11 BUN 22 H Creatinine 1.0 Est GFR ( Amer) > 60 Est GFR (Non-Af Amer) > 60 Random Glucose 97 Calcium 9.3 Phosphorus 4.7 H Magnesium 2.2 Total Bilirubin 0.5 AST 20 ALT 38 Alkaline Phosphatase 62 C-React Prot High Sens Total Protein 7.0 Albumin 4.1 Globulin 2.9 Albumin/Globulin Ratio 1.4 07/22/17 06:20 WBC RBC Hgb Hct MCV MCH MCHC RDW Plt Count MPV Gran % Lymph % (Auto) [place] % (Auto) Eos % (Auto) Baso % (Auto) Gran # Lymph # [place] # Eos # Baso # ESR Sodium Potassium Chloride Carbon Dioxide Anion Gap BUN Creatinine Est GFR ( Amer) Est GFR (Non-Af Amer) Random Glucose Calcium Phosphorus Magnesium Total Bilirubin AST ALT Alkaline Phosphatase C-React Prot High Sens 0.52 L Total Protein Albumin Globulin Albumin/Globulin Ratio Assessment & Plan - Assessment and Plan (Free Text) Assessment: 27 yo male with past medical history of asthma. Found to have white matter disease in MRI. Possible brain lesion. High suspicion for Multiple Myeloma. Orthostatic hypertension. Started on IV steroids. Awaiting lumbar puncture. Start IV Rocephin for now at 2gm daily. Monitor leukocytosis and fever trends. Rene cultures and cultures of spinal fluid when obtained. Send procalcitonin for evaluation. Lyme studies pending but unlikely diagnosis. On seizure precautions. Thank you for allowing me to participate in the care of the patient, we will follow with you.
[2017-07-23] MEDS: Pantoprazole 40 mg EC Tab PO SCH (06:30)
--- NOTE | 2017-07-23 06:42 | CP.PCM.PN ---
Subjective - Date & Time of Evaluation Date of Evaluation: 07/23/17 Time of Evaluation: 06:38 - Subjective Subjective: Mr. Braden was seen and examined at the bedside. He is alert, oriented in all spheres. He states of having minute headache, located at the right occipital area, non-radiating, pressure like. He states of 1/10 pain scale. He denies any dizziness, numbness, lightheadedness, nausea, or vomiting. There was no untoward events overnight. Objective - Vital Signs/Intake and Output Vital Signs (last 24 hours): Temp Pulse Resp BP Pulse Ox 97.7 F 73 18 126/83 100 07/22/17 16:00 07/22/17 16:00 07/22/17 16:00 07/22/17 16:00 07/22/17 16:00 Intake and Output: 07/22/17 07/23/17 18:59 06:59 Intake Total 1200 360 Balance 1200 360 - Medications Medications: Current Medications Acetaminophen (Tylenol 325mg Tab) 650 mg PO Q6H PRN PRN Reason: Headache Methylprednisolone 1 gm/ (Sodium Chloride) 250 mls @ 500 mls/hr IV DAILY [facility] Stop: 07/24/17 10:29 Last Admin: 07/22/17 14:31 Dose: 500 mls/hr Ceftriaxone Sodium (Rocephin 2 Gm Ivpb) 2 gm in 100 mls @ 100 mls/hr IVPB DAILY [facility] PRN Reason: Protocol Pantoprazole Sodium (Protonix Ec Tab) 40 mg PO 0600 [facility] Last Admin: 07/23/17 06:30 Dose: 40 mg - Labs Labs: 07/22/17 06:20 07/22/17 06:20 - Constitutional Appears: No Acute Distress - Head Exam Head Exam: ATRAUMATIC - Neurological Exam Neurological Exam: Alert, Awake, CN II-XII Intact, Oriented x3 Neuro motor strength exam: Left Upper Extremity: 5, Right Upper Extremity: 5, Left Lower Extremity: 5, Right Lower Extremity: 5 Additional comments: Neurological improved from previous examination. Sensation is intact. Assessment and Plan (1) Demyelinating changes in brain Assessment & Plan: Case discussed with Dr. Stewart, follow up MRI of the spine with and without contrast. Continue all current medical regimen. Recommends PT/OT eval and treat. Status: Acute
[2017-07-23 06:55] LABS: GRAN # 10.25 (1.4-6.5); GRAN % 89.6 % (50.0-68.0); HEMATOCRIT 41.5 % (42.0-52.0); LYMPH # 0.7 (1.2-3.4); LYMPH % 6.5 % (22.0-35.0); MEAN CORPUSCULAR HGB CONC 35.2 g/dl (31.0-37.0); MEAN PLATELET VOLUME 10.8 fl (7.0-11.0); MONO # 0.5 (0.1-0.6); MONO % 3.9 % (1.0-6.0); RED CELL DISTRIBUTION WIDTH 12.1 % (11.5-14.5); WHITE BLOOD COUNT 11.4 10^3/ul (4.5-11.0)
[2017-07-23 06:58] LABS: ALB/GLOB RATIO 1.4 (1.1-1.8); ALKALINE PHOSPHATASE 72 U/L (38-126); ALT/SGPT 32 U/L (7-56); AST/SGOT 17 U/L (17-59); BILIRUBIN,TOTAL 0.5 mg/dL (0.2-1.3); BLOOD UREA NITROGEN 20 mg/dL (7-21); CALCIUM 9.6 mg/dL (8.4-10.5); CARBON DIOXIDE 26 mmol/L (21-33); CHLORIDE 106 mmol/L (98-107); GFR AFRICAN-AMERICAN > 60; GLUCOSE,RANDOM 159 mg/dL (70-110); POTASSIUM 4.6 mmol/L (3.6-5.0); SODIUM 143 mmol/L (132-148); TOTAL PROTEIN 7.3 g/dL (5.8-8.3)
[2017-07-23 07:13] LABS: LYME DISEASE SCREEN <0.90 index
[2017-07-23 08:27] VITALS: RESP 20
[2017-07-23] MEDS: cefTRIAXone 2 GM IN NS 2 GM/100 ML BAG IVPB SCH (09:30)
[2017-07-23] MEDS: methylPREDNISolone 1 GM in Sodium Chloride 0.9% 250 ML IV SCH (09:30)
[2017-07-23 11:32] LABS: FLUID TYPE SPINAL FLUID
--- NOTE | 2017-07-23 12:53 | CP.PCM.PN ---
<Varghese Orellana - Last Filed: 07/23/17 12:50> Subjective - Date & Time of Evaluation Date of Evaluation: 07/23/17 Time of Evaluation: 12:50 - Subjective Subjective: Medicine Progress Note: Pt seen and examined at bedside. Pt denied any acute overnight events. Pt states that facial numbness is gone and that dizziness is improved. Pt denied CP , SOB, nausea, vomiting, diarrhea, constipation, chills, fever, CASTLE, fatigue, abdominal pain, or dysuria. Objective - Vital Signs/Intake and Output Vital Signs (last 24 hours): Temp Pulse Resp BP Pulse Ox 97.9 F 77 20 130/53 L 98 07/23/17 07:30 07/23/17 07:30 07/23/17 07:30 07/23/17 07:30 07/23/17 07:30 Intake and Output: 07/23/17 07/23/17 06:59 18:59 Intake Total 360 Balance 360 - Medications Medications: Current Medications Acetaminophen (Tylenol 325mg Tab) 650 mg PO Q6H PRN PRN Reason: Headache Methylprednisolone 1 gm/ (Sodium Chloride) 250 mls @ 500 mls/hr IV DAILY [facility] Stop: 07/24/17 10:29 Last Admin: 07/23/17 09:30 Dose: 500 mls/hr Ceftriaxone Sodium (Rocephin 2 Gm Ivpb) 2 gm in 100 mls @ 100 mls/hr IVPB DAILY [facility] PRN Reason: Protocol Last Admin: 07/23/17 09:30 Dose: 100 mls/hr Pantoprazole Sodium (Protonix Ec Tab) 40 mg PO 0600 [facility] Last Admin: 07/23/17 06:30 Dose: 40 mg - Labs Labs: 07/23/17 06:30 07/23/17 06:30 - Constitutional Appears: No Acute Distress - Head Exam Head Exam: ATRAUMATIC, NORMOCEPHALIC - Eye Exam Eye Exam: EOMI, Normal appearance, PERRL - ENT Exam ENT Exam: Mucous Membranes Moist - Neck Exam Neck Exam: Full ROM. absent: Lymphadenopathy, Tenderness, Thyromegaly - Respiratory Exam Respiratory Exam: Clear to Ausculation Bilateral. absent: Accessory Muscle Use , Rales, Rhonchi, Wheezes, Respiratory Distress - Cardiovascular Exam Cardiovascular Exam: RRR, +S1, +S2. absent: Diastolic murmur, Gallop, Rubs, Murmur - GI/Abdominal Exam GI & Abdominal Exam: Soft. absent: Distended, Guarding, Tenderness, Rebound - Extremities Exam Extremities Exam: Full ROM, Normal Capillary Refill, Normal Inspection - Back Exam Back Exam: NORMAL INSPECTION - Neurological Exam Neurological Exam: Alert, Awake, Oriented x3 - Psychiatric Exam Psychiatric exam: Normal Affect, Normal Mood - Skin Skin Exam: Dry, Intact, Normal Color, Warm Assessment and Plan - Assessment and Plan (Free Text) Assessment: 27 year old male with past medical history of asthma presents with dizziness and right sided facial numbness admitted for evaluation for multiple sclerosis. Plan: 1. Multiple Sclerosis -Neurology consulted -CT head showing hypodense vasogenic edema or gliosis within left parietal white matter -MRI showed confluent white matter abnormalities in the occipital and temporal horns of both ventricles. Large white matter lesion in the left parietal white matter. There is also a lesion in the right inferior cerebellar peduncle. Findings suspicious for demyelinating disease. -F/u CSF analysis Cell count/diff, IGG, [place], Myelin basic protein, oligoclonal bands, [place], culture, cryptococcus -F/u spinal MRI -EEG normal -Solumedrol 1 gm IVPB daily -CXR negative -ESR, CRP WNL -Hep panel, HIV negative -F/U RPR, lyme titers, orthostatics -Seizure precautions, fall precautions -ID consulted Started Rocephin GI/DVT ppx -Protonix 40mg daily -SCDs Pt seen and discussed in detail with Dr. Arredondo. Adair Orellana, PGY1 <Fabian Arredondo - Last Filed: 07/24/17 10:41> Objective - Vital Signs/Intake and Output Vital Signs (last 24 hours): Temp Pulse Resp BP Pulse Ox 97.8 F 75 20 123/70 96 07/24/17 07:56 07/24/17 07:56 07/24/17 07:56 07/24/17 07:56 07/24/17 07:56 Intake and Output: 07/24/17 07/24/17 06:59 18:59 Intake Total 240 Balance 240 - Medications Medications: Current Medications Acetaminophen (Tylenol 325mg Tab) 650 mg PO Q6H PRN PRN Reason: Headache Ceftriaxone Sodium (Rocephin 2 Gm Ivpb) 2 gm in 100 mls @ 100 mls/hr IVPB DAILY [facility] PRN Reason: Protocol Last Admin: 07/24/17 10:31 Dose: 100 mls/hr Pantoprazole Sodium (Protonix Ec Tab) 40 mg PO 0600 [facility] Last Admin: 07/24/17 05:36 Dose: 40 mg - Labs Labs: 07/24/17 06:00 07/24/17 06:00 Attending/Attestation - Attestation I have personally seen and examined this patient.: Yes I have fully participated in the care of the patient.: Yes I have reviewed all pertinent clinical information, including history, physical exam and plan: Yes Notes (Text): 07/24/17 10:41 Patient was seen and examined with medical office technician. Agreed with resident assessment and plan. Management plan was discussed in detail with patient Education was provided.
[2017-07-23] MEDS ORDERED: Gadodiamide 287 MG/ML VIAL (15ML) IV ONE (13:39)
--- NOTE | 2017-07-23 14:02 | PCM.PROC ---
Procedures Attestation:: I certify that I have explained the specified Operation(s) or Procedure(s), risks, benefits and reasonable alternatives to the Patient and/or other person responsible. The opportunity was given to ask questions and all questions answered - Lumbar Puncture Consent Obtained: Written Consent Time Out Performed: Yes Patient Position: Upright Skin Prep: Povidone-Iodine 1% Local Anesthetic Used: Lidocaine 1% Spinal Needle Gauge: 22G Interspace Used: L4-L5 Fluid Initially Obtained: Clear Complications: None
--- NOTE | 2017-07-23 14:34 | MRI ---
PROCEDURE: MR LUMBAR SPINE WITH AND WITHOUT CONTRAST HISTORY: multiple sclerosis COMPARISON: None available. TECHNIQUE: Multiecho multiplanar sequences were performed through the lumbar spine with and without the use of intravenous contrast. 15 cc of Omniscan FINDINGS: Normal lumbar lordosis. Vertebral body heights are preserved. Marrow signal unremarkable. Conus medullaris unremarkable at the level of L1 Paraspinal soft tissues are unremarkable. No abnormal enhancement. T12-L1: No disc herniation, spinal canal stenosis or neural foraminal narrowing. L1-2: No disc herniation, spinal canal stenosis or neural foraminal narrowing. L2-3: No disc herniation, spinal canal stenosis or neural foraminal narrowing. L3-4: No disc herniation, spinal canal stenosis or neural foraminal narrowing. L4-5: There is a right lateral disc protrusion extending into the neural foramen. This is best seen on postcontrast image 7 series 5 L5-S1: There is disc degeneration with a small central disc protrusion. There is also disc degeneration OTHER FINDINGS: None. IMPRESSION: Right lateral disc protrusion at L4-5. Disc degeneration and small central disc protrusion at L5-S1
--- NOTE | 2017-07-23 17:58 | CP.PCM.PN ---
Subjective - Date & Time of Evaluation Date of Evaluation: 07/23/17 Time of Evaluation: 16:45 - Subjective Subjective: Infectious Disease Follow Up: July 23, 2017 27 yo male with presentation of right sided facial numbness and dizziness. 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 No fevers or chills. CT of the head done and MRI as well. Studies strongly suggest demyelinating disease with large white matter abnormalities. Cannot rule out infectious or viral etiology. For lumbar puncture. RPR, HIV, and Hepatitis studies negative. On IV steroids. No leukocytosis. Afebrile. Lumbar Puncture done today. Elevate protein count in CSF evaluation. Objective - Vital Signs/Intake and Output Vital Signs (last 24 hours): Temp Pulse Resp BP Pulse Ox 97.9 F 77 20 130/53 L 98 07/23/17 07:30 07/23/17 07:30 07/23/17 07:30 07/23/17 07:30 07/23/17 07:30 Intake and Output: 07/23/17 07/23/17 06:59 18:59 Intake Total 360 1080 Balance 360 1080 - Medications Medications: Current Medications Acetaminophen (Tylenol 325mg Tab) 650 mg PO Q6H PRN PRN Reason: Headache Methylprednisolone 1 gm/ (Sodium Chloride) 250 mls @ 500 mls/hr IV DAILY XAVIER Stop: 07/24/17 10:29 Last Admin: 07/23/17 09:30 Dose: 500 mls/hr Ceftriaxone Sodium (Rocephin 2 Gm Ivpb) 2 gm in 100 mls @ 100 mls/hr IVPB DAILY XAVIER PRN Reason: Protocol Last Admin: 07/23/17 09:30 Dose: 100 mls/hr Pantoprazole Sodium (Protonix Ec Tab) 40 mg PO 0600 XAVIER Last Admin: 07/23/17 06:30 Dose: 40 mg - Labs Labs: 07/23/17 06:30 07/23/17 06:30 - Constitutional Appears: Non-toxic, No Acute Distress - Head Exam Head Exam: ATRAUMATIC, NORMOCEPHALIC - Eye Exam Eye Exam: EOMI, PERRL Pupil Exam: NORMAL ACCOMODATION, PERRL - ENT Exam ENT Exam: Mucous Membranes Moist, Normal External Ear Exam, TM's Normal Bilaterally Additional comments: Deformity of Left ear noted : Perichondrial hematoma - Neck Exam Neck Exam: Full ROM, Normal Inspection - Respiratory Exam Respiratory Exam: Clear to Ausculation Bilateral, NORMAL BREATHING PATTERN. absent: Rales, Rhonchi, Wheezes - Cardiovascular Exam Cardiovascular Exam: REGULAR RHYTHM, RRR, +S1, +S2 - GI/Abdominal Exam GI & Abdominal Exam: Soft, Normal Bowel Sounds. absent: Distended, Tenderness - Extremities Exam Extremities Exam: Full ROM, Normal Inspection - Neurological Exam Neurological Exam: Alert, Awake, Oriented x3 Additional comments: right facial numbness - Psychiatric Exam Psychiatric exam: Normal Affect, Normal Mood - Skin Skin Exam: Intact, Normal Color Assessment and Plan - Assessment and Plan (Free Text) Assessment: 27 yo male with past medical history of asthma. Found to have white matter disease in MRI. Possible brain lesion. High suspicion for Multiple Myeloma. Orthostatic hypertension. Started on IV steroids. Awaiting lumbar puncture. Continue IV Rocephin for now at 2gm daily. Monitor leukocytosis and fever trends. Rene cultures and cultures of spinal fluid when obtained. Send procalcitonin for evaluation. Lyme studies pending but unlikely diagnosis. On seizure precautions. Thank you for allowing me to participate in the care of the patient, we will follow with you.
[2017-07-23 20:06] LABS: LYME IGG NEGATIVE (NEGATIVE)
[2017-07-23 20:10] LABS: LYME IGM EQUIVOCAL (NEGATIVE)
[2017-07-23 21:05] LABS: WNV IGG CSF 1.61; WNV IGM CSF 0.03
[2017-07-24] MEDS: Pantoprazole 40 mg EC Tab PO SCH (05:36)
[2017-07-24 06:33] LABS: HEMATOCRIT 40.3 % (42.0-52.0); MEAN CELL VOLUME 91.6 fl (80.0-105.0); MEAN PLATELET VOLUME 11.1 fl (7.0-11.0); WHITE BLOOD COUNT 15.4 10^3/ul (4.5-11.0)
[2017-07-24 06:44] LABS: ALB/GLOB RATIO 1.4 (1.1-1.8); ALKALINE PHOSPHATASE 89 U/L (38-126); ALT/SGPT 32 U/L (7-56); AST/SGOT 18 U/L (17-59); BILIRUBIN,TOTAL 0.3 mg/dL (0.2-1.3); BLOOD UREA NITROGEN 16 mg/dL (7-21); CALCIUM 9.6 mg/dL (8.4-10.5); CARBON DIOXIDE 28 mmol/L (21-33); CHLORIDE 107 mmol/L (98-107); GFR AFRICAN-AMERICAN > 60; GLUCOSE,RANDOM 161 mg/dL (70-110); POTASSIUM 4.2 mmol/L (3.6-5.0); SODIUM 143 mmol/L (132-148); TOTAL PROTEIN 6.8 g/dL (5.8-8.3)
[2017-07-24] MEDS: cefTRIAXone 2 GM IN NS 2 GM/100 ML BAG IVPB SCH (10:31)
[2017-07-24] MEDS: methylPREDNISolone 1 GM in Sodium Chloride 0.9% 250 ML IV SCH (10:32)
[2017-07-24] MEDS ORDERED: Gadodiamide 287 MG/ML VIAL (15ML) IV ONE (13:42)
--- NOTE | 2017-07-24 14:44 | MRI ---
PROCEDURE: MR THORACIC SPINE WITH AND WITHOUT CONTRAST HISTORY: multiple sclerosis COMPARISON: None available. TECHNIQUE: Multiecho multiplanar sequences were performed through the thoracic spine with and without the use of intravenous contrast. FINDINGS: ALIGNMENT: Normal thoracic spinal alignment. Normal thoracic kyphosis. VERTEBRA: Vertebral body height are preserved. MARROW: Marrow signal unremarkable. PARASPINAL SOFT TISSUES: Unremarkable. CORD: Unremarkable thoracic cord. No volume loss, signal abnormality or syrinx. DISCS: No disc herniation, spinal canal stenosis, or neuroforaminal narrowing. ENHANCEMENT: No abnormal intrathecal or epidural. OTHER FINDINGS: None. IMPRESSION: Unremarkable pre and post contrast enhanced MRI of the thoracic spine
--- NOTE | 2017-07-24 14:46 | CP.PCM.PN ---
<Varghese [place] - Last Filed: 07/24/17 14:42> Subjective - Date & Time of Evaluation Date of Evaluation: 07/24/17 Time of Evaluation: 09:00 - Subjective Subjective: Patient seent and examined at bedside. No acute events reported overngith. Patient reports absence of facial numbness and dizziness. Patient reports he feels as if he is at his baseline. Patient and interviewer discussed need for further evaluation by neurology team due to presentation. Patient denies chest pain, shortness of breath, nausea, vomiting, diarrhea, constipation, fever chills, headache, focal weakness, numbness both facial or extremity. Objective - Vital Signs/Intake and Output Vital Signs (last 24 hours): Temp Pulse Resp BP Pulse Ox 97.8 F 75 20 123/70 96 07/24/17 07:56 07/24/17 07:56 07/24/17 07:56 07/24/17 07:56 07/24/17 07:56 Intake and Output: 07/24/17 07/24/17 06:59 18:59 Intake Total 240 Balance 240 - Medications Medications: Current Medications Acetaminophen (Tylenol 325mg Tab) 650 mg PO Q6H PRN PRN Reason: Headache Ceftriaxone Sodium (Rocephin 2 Gm Ivpb) 2 gm in 100 mls @ 100 mls/hr IVPB DAILY XAVIER PRN Reason: Protocol Last Admin: 07/24/17 10:31 Dose: 100 mls/hr Pantoprazole Sodium (Protonix Ec Tab) 40 mg PO 0600 [facility] Last Admin: 07/24/17 05:36 Dose: 40 mg - Labs Labs: 07/24/17 06:00 07/24/17 06:00 - Constitutional Appears: Well, No Acute Distress - Head Exam Head Exam: ATRAUMATIC, NORMAL INSPECTION, NORMOCEPHALIC - Eye Exam Eye Exam: EOMI, PERRL - ENT Exam ENT Exam: Mucous Membranes Moist - Neck Exam Neck Exam: Full ROM. absent: Lymphadenopathy - Respiratory Exam Respiratory Exam: Clear to Ausculation Bilateral, NORMAL BREATHING PATTERN - Cardiovascular Exam Cardiovascular Exam: REGULAR RHYTHM, +S1, +S2 - GI/Abdominal Exam GI & Abdominal Exam: Soft, Normal Bowel Sounds. absent: Guarding, Tenderness - Extremities Exam Extremities Exam: Normal Capillary Refill. absent: Calf Tenderness, Pedal Edema - Back Exam Back Exam: NORMAL INSPECTION - Neurological Exam Neurological Exam: Alert, Awake, CN II-XII Intact, Normal Gait, Oriented x3 Neuro motor strength exam: Left Upper Extremity: 5, Right Upper Extremity: 5, Left Lower Extremity: 5, Right Lower Extremity: 5 - Psychiatric Exam Psychiatric exam: Normal Affect, Normal Mood - Skin Skin Exam: Dry, Intact, Warm. absent: Rash Assessment and Plan - Assessment and Plan (Free Text) Assessment: 27 year old male with past medical history of asthma presents with dizziness and right sided facial numbness admitted for evaluation for multiple sclerosis. Patient with MRI evidence of demyelination, LP tap preformed and awaiting final results. Plan: 1. Multiple Sclerosis -Neurology consulted, appreciate recs -CT head showing hypodense vasogenic edema or gliosis within left parietal white matter -MRI showed confluent white matter abnormalities in the occipital and temporal horns of both ventricles. Large white matter lesion in the left parietal white matter. There is also a lesion in the right inferior cerebellar peduncle. Findings suspicious for demyelinating disease. -CSF analysis - West Nile IgG + - Cryptococcus - - CSF Volume, RBC, Protein: high - Lyme IgG Ab pending - Cervical MRI: Mild central stenosis at C5-C6, limited nueral foraminal stenoses, thickining of posterior longitudinal ligament, see report for full details - Thoracic MRI: unremarkable - Lumbar MRI: Right lateral disc protrusion at L4-L5, Disc degeneration and small central disc protrusion at L5-S1 -EEG normal -Solumedrol 1 gm IVPB daily -CXR negative -ESR, CRP WNL -Hep panel, HIV negative -F/U RPR, lyme titers - Lyme IgM Ab = Equivocal (high), f/u final results - Lyme bands pending - RPR nonreactive -Seizure precautions, fall precautions -ID consulted Continue Rocephin GI/DVT ppx -Protonix 40mg daily -SCDs <Fabian Arredondo - Last Filed: 07/25/17 10:37> Objective - Vital Signs/Intake and Output Vital Signs (last 24 hours): Temp Pulse Resp BP Pulse Ox 98 F 96 H 20 141/80 98 07/24/17 16:12 07/24/17 16:12 07/24/17 16:12 07/24/17 16:12 07/24/17 16:12 - Labs Labs: 07/24/17 06:00 07/24/17 06:00 Attending/Attestation - Attestation I have personally seen and examined this patient.: Yes I have fully participated in the care of the patient.: Yes I have reviewed all pertinent clinical information, including history, physical exam and plan: Yes Notes (Text): 07/25/17 10:34 Patient was seen and examined with medical advisor. Agreed with resident assessment and plan. 27 yo male with presentation of right sided facial numbness and dizziness. 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 No fevers or chills. CT of the head done and MRI as well. Studies strongly suggest demyelinating disease with large white matter abnormalities, patient was evaluated by Neurology and was started on IV methylprednisolon 1 gram daily for 3 days.Patient was also started on Rocephin by ID.CSF studies showed IGM titer elevated for Lyme disease.Patient symptoms has improved.He will follow up with Neurology in 2 weeks.As per ID the IGM level is not specific.There is no need for IV or PO antibiotics.Patient will be discharged home and will follow up with Neurology. Management plan was discussed in detail with patient Education was provided.
--- NOTE | 2017-07-24 14:55 | MRI ---
PROCEDURE: MR CERVICAL SPINE WITH AND WITHOUT CONTRAST HISTORY: multiple sclerosis COMPARISON: None available. TECHNIQUE: Multiecho multiplanar sequences were performed through the cervical spine with and without the use of intravenous contrast. FINDINGS: Normal lordotic curvature. Craniocervical junction unremarkable. Vertebral body heights preserved. No marrow signal abnormality. Normal cervical cord. No suspicious signal abnormality or volume loss/cord expansion. No paraspinal abnormality. No abnormal intrathecal or epidural enhancement. C2-3: No disc herniation, spinal canal stenosis or neural foraminal narrowing. C3-4: No disc herniation, spinal canal stenosis or neural foraminal narrowing. C4-5: No disc herniation, spinal canal stenosis or neural foraminal narrowing. C5-C6: A a moderate left lateral disc herniation is appreciated combine with generalized disc bulge causing mild central stenosis bilaterally with stenosis greater the left and right due to disc herniation. [id number] left neural foraminal stenosis also results. No right neural foraminal stenosis. There is also likely thickening of the posterior longitudinal ligament at the midline. C6-C7: Thickening opposed gross longitudinal ligament is appreciated on the posterior borders of C6 vertebral body and C7 somewhat. A generalized disc bulge causes mild central stenosis. No significant neural foraminal stenosis. No definitive disc herniation. C7-T1: Asymmetric disc bulges seen greater the left and the right causing borderline left neural foraminal stenosis and encroaching left lateral recess somewhat. This may also represent a mild left lateral disc herniation. No central stenosis. OTHER FINDINGS: None. IMPRESSION: Mild central stenosis appreciated at C5-6 caused by generalized disc bulge and moderate left lateral disc herniation which also causes [id number] left neural foraminal stenosis. Limited neural foraminal stenoses are under and degenerative basis as discussed above including asymmetric disc bulges toward the left greater than the right at C7-T1 versus small left lateral disc herniation. Thickening of the posterior longitudinal ligament is seen from C5-6 to see 7 mid vertebral body level.
[2017-07-24 16:14] VITALS: BP 141/80; PULSE 96; TEMP 98; O2SAT 98
--- NOTE | 2017-07-24 16:29 | CP.PCM.PN ---
Subjective - Date & Time of Evaluation Date of Evaluation: 07/24/17 Time of Evaluation: 16:24 - Subjective Subjective: Mr. Braden was seen and examined today at bedside. He states that the numbness in his face is gone and he feels like he is back to normal. There were no acute events overnight and he denied any other symptoms. I discussed the findings of the CSF analysis with him and his mother. Some of the results are still pending, but there is no other treatment at this time and no need for the patient to remain in the hospital waiting for results. We talked about the importance of follow-up and confirming MS with the remaining results of the CSF. At this point, this is the most likely diagnosis. Objective - Vital Signs/Intake and Output Vital Signs (last 24 hours): Temp Pulse Resp BP Pulse Ox 98 F 96 H 20 141/80 98 07/24/17 16:12 07/24/17 16:12 07/24/17 16:12 07/24/17 16:12 07/24/17 16:12 Intake and Output: 07/24/17 07/24/17 06:59 18:59 Intake Total 240 Balance 240 - Medications Medications: Current Medications Acetaminophen (Tylenol 325mg Tab) 650 mg PO Q6H PRN PRN Reason: Headache Ceftriaxone Sodium (Rocephin 2 Gm Ivpb) 2 gm in 100 mls @ 100 mls/hr IVPB DAILY XAVIER PRN Reason: Protocol Last Admin: 07/24/17 10:31 Dose: 100 mls/hr Pantoprazole Sodium (Protonix Ec Tab) 40 mg PO 0600 [facility] Last Admin: 07/24/17 05:36 Dose: 40 mg - Labs Labs: 07/24/17 06:00 07/24/17 06:00 - Neurological Exam Neurological Exam: Alert, Awake, CN II-XII Intact, Normal Gait, Oriented x3, Reflexes Normal Neuro motor strength exam: Left Upper Extremity: 5, Right Upper Extremity: 5, Left Lower Extremity: 5, Right Lower Extremity: 5 Additional comments: Sensation is intact throughout to LT/P/T. Assessment and Plan (1) Demyelinating changes in brain Assessment & Plan: Will discuss starting long-term MS prophylactic medications in the outpatient clinic. Results will also be back by then. I gave the patient my card and asked him to see me in two weeks. He feels well now and is asymptomatic. The results that are still needed are the myelin basic protein, IgG index, oligoclonal bands and will confirm West Nile or Lyme's with the PCR and Western Blot, respectively. Status: Acute
--- NOTE | 2017-07-24 17:23 | CP.PCM.DIS ---
<HeshamyungVarghese foley - Last Filed: 07/25/17 14:58> Provider - Provider Date of Admission: 07/21/17 22:54 Attending physician: Fabian Arredondo MD Primary care physician: None Consults: Neurology: Dr. Raffi Stewart ID: Dr. Chace Todd Time Spent in preparation of Discharge (in minutes): 35 Hospital Course - Lab Results Lab Results: Micro Results 07/22/17 15:30 Cerebral Spinal Fluid Gram Stain - Final 07/22/17 15:30 Cerebral Spinal Fluid CSF Culture - Preliminary NO GROWTH AFTER 24 HOURS 07/22/17 06:20 Blood Blood Culture - Preliminary NO GROWTH AFTER 48 HOURS 07/22/17 06:30 Blood Blood Culture - Preliminary NO GROWTH AFTER 48 HOURS Most Recent Lab Values WBC 15.4 10^3/ul (4.5-11.0) H D 07/24/17 06:00 RBC 4.40 10^6/uL (3.5-6.1) 07/24/17 06:00 Hgb 14.1 g/dL (14.0-18.0) 07/24/17 06:00 Hct 40.3 % (42.0-52.0) L 07/24/17 06:00 MCV 91.6 fl (80.0-105.0) 07/24/17 06:00 MCH 32.0 pg (25.0-35.0) 07/24/17 06:00 MCHC 35.0 g/dl (31.0-37.0) 07/24/17 06:00 RDW 12.0 % (11.5-14.5) 07/24/17 06:00 Plt Count 174 10^3/uL (120.0-450.0) 07/24/17 06:00 MPV 11.1 fl (7.0-11.0) H 07/24/17 06:00 Gran % 89.6 % (50.0-68.0) H 07/23/17 06:30 Lymph % (Auto) 6.5 % (22.0-35.0) L 07/23/17 06:30 [place] % (Auto) 3.9 % (1.0-6.0) 07/23/17 06:30 Eos % (Auto) 0.0 % (1.5-5.0) L 07/23/17 06:30 Baso % (Auto) 0.0 % (0.0-3.0) 07/23/17 06:30 Gran # 10.25 (1.4-6.5) H 07/23/17 06:30 Lymph # 0.7 (1.2-3.4) L 07/23/17 06:30 [place] # 0.5 (0.1-0.6) 07/23/17 06:30 Eos # 0.0 (0.0-0.7) 07/23/17 06:30 Baso # 0.00 K/mm3 (0.0-2.0) 07/23/17 06:30 ESR 6 mm/hr (0.0-15.0) 07/22/17 06:20 Sodium 143 mmol/L (132-148) 07/24/17 06:00 Potassium 4.2 mmol/L (3.6-5.0) 07/24/17 06:00 Chloride 107 mmol/L (98-107) 07/24/17 06:00 Carbon Dioxide 28 mmol/L (21-33) 07/24/17 06:00 Anion Gap 12 (10-20) 07/24/17 06:00 BUN 16 mg/dL (7-21) 07/24/17 06:00 Creatinine 0.8 mg/dl (0.8-1.5) 07/24/17 06:00 Est GFR ( Amer) > 60 07/24/17 06:00 Est GFR (Non-Af Amer) > 60 07/24/17 06:00 Random Glucose 161 mg/dL (70-110) H 07/24/17 06:00 Calcium 9.6 mg/dL (8.4-10.5) 07/24/17 06:00 Phosphorus 4.7 mg/dL (2.5-4.5) H 07/22/17 06:20 Magnesium 2.2 mg/dL (1.7-2.2) 07/22/17 06:20 Total Bilirubin 0.3 mg/dL (0.2-1.3) 07/24/17 06:00 AST 18 U/L (17-59) 07/24/17 06:00 ALT 32 U/L (7-56) 07/24/17 06:00 Alkaline Phosphatase 89 U/L (38-126) 07/24/17 06:00 C-React Prot High Sens 0.52 mg/L (1.00-3.00) L 07/22/17 06:20 Total Protein 6.8 g/dL (5.8-8.3) 07/24/17 06:00 Albumin 3.9 g/dL (3.0-4.8) 07/24/17 06:00 Globulin 2.9 gm/dL 07/24/17 06:00 Albumin/Globulin Ratio 1.4 (1.1-1.8) 07/24/17 06:00 Fluid Type Spinal fluid 07/22/17 15:30 CSF Volume 2 mL (0-1) H 07/22/17 15:30 CSF Appearance Clear/colorless (CLEAR) 07/22/17 15:30 CSF WBC 3.0 /uL (0.0-5.0) 07/22/17 15:30 CSF RBC 70.0 /uL (0.0-0.0) H 07/22/17 15:30 CSF Total Cell Counted TEST NOT PERFORMED 07/22/17 15:30 CSF Neutrophils % (0-0) 07/22/17 15:30 CSF Lymphocytes % (0-0) 07/22/17 15:30 CSF Monos/Macrophages TEST NOT PERFORMED 07/22/17 15:30 CSF Comment TEST NOT PERFORMED 07/22/17 15:30 CSF Glucose 68 mg/dL (40-70) 07/22/17 15:30 CSF Total Protein 74.0 mg/dL (12-60) H 07/22/17 15:30 CSF Cryptococcus Ag Negative (NEGATIVE) 07/22/17 16:17 CSF West Nile IgG Ab 1.61 H 07/22/17 16:17 CSF West Nile IgM Ab 0.03 07/22/17 16:17 RPR Nonreactive (NONREACTIVE) 07/22/17 22:21 Lyme Disease Screen <0.90 index 07/22/17 06:20 Lyme Disease IgG Ab (IFA) Negative (NEGATIVE) 07/22/17 06:20 Lyme Disease IgM Ab Equivocal (NEGATIVE) H 07/22/17 06:20 Hepatitis A IgM Ab Negative (NEGATIVE) 07/21/17 00:00 Hep Bs Antigen Negative (NEGATIVE) 07/21/17 00:00 Hep B Core IgM Ab Negative (NEGATIVE) 07/21/17 00:00 Hepatitis C Antibody Negative (NEGATIVE) 07/21/17 00:00 HIV 1&2 Antibody Screen Negative (NEGATIVE) 07/21/17 21:20 - Hospital Course Hospital Course: Patient is a 27 year old male with no significant past medical history who presented with one sided facial numbness for a few days prior to presentation. Patient indicated this was his first episode. 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 Patient was evaluated in the ED with MRI findings suggesting ocnfluent white matter abnormalities in the occipital and temporal horns of both ventricles, large white matter lesion in the left parietal white matter, lesion of the right inferior cerebellar peduncle and overall findings suspicious of demyelinating disease. Patient was admitted for further testing regarding dizziness and facial numbness. Neurology with Dr. Stewart was consulted with recommendations for an EEG, which showed, normal EEG with no focal slowing or seizure like activity. A lumbar puncture was preformed with evaluation of pressure, myelin basic protein, oligoclonal bands and IgG index. Neurology also recommended for MRI of cervical , thoracic and lumbar spine which showed right lateral disc protrusion at L4-L5 and disc degeneration and small central disc protrusion at L5-S1, mild central stenosis at C5-C6 caused by generalized disc bulge and moderate left lateral disc herniation. The patient was started on IV steroids for treatment of suspected multiple sclerosis. Neurology continued to follow the patient through out hospital stay. On 07/25/2017 Neurology recommended for outpatient follow up for MS prophylactic medications and confirmation of pending lab results. Patient was asked to see neurology in two weeks from discharge. Infectious disease was consulted with Dr. Todd for suspected infectious etiology of facial numbness. ID recommended for IV rocephin and further work up of infectious etiology. Initial lab work came back showing IgG positive Lyme's titers. In discussion with ID it was determined the patient had received appropriate treatment for Lyme's with IV antibiotics and that on 07/24/17 the patient no longer required IV antibiotics for treatment of suspected Lyme's disease and was suitable for discharge with outpatient follow up. ID had advised primary team that sending patient home on doxycycline 100mg PO BID was not required and that a benefit vs. risk in terms of side effects brought on by the antibiotic would not be enough to require discharge prescription. Rather the patient would need to follow up outpatient with a PMD to redraw Lyme's titers to assess for infectious process. Patient and primary care team discussed the potential benefits and risks of staying in the hospital for continued treatment and observation vs. outpatient follow up. Patient was in understanding and agreeable to risks and benefits of discharge. The patient was instructed to follow up with neurology outpatient and to avoid heavy lifting, physical exercise, fighting, or chance at trauma until approval from neurology. Patient was instructed to follow up with PMD for redraw of specific titers for infectious etiologies suspected of causing facial numbness. Patient was in understanding and agreeable with plan. - Date & Time of H&P Date of H&P: 07/21/17 Time of H&P: 23:43 Discharge Exam - Head Exam Head Exam: ATRAUMATIC, NORMAL INSPECTION, NORMOCEPHALIC - Eye Exam Eye Exam: EOMI, PERRL - Respiratory Exam Respiratory Exam: Clear to PA & Lateral, NORMAL BREATHING PATTERN, UNREMARKABLE - Cardiovascular Exam Cardiovascular Exam: REGULAR RHYTHM, +S1, +S2 - GI/Abdominal Exam GI & Abdominal Exam: Normal Bowel Sounds, Soft, Unremarkable. absent: Tenderness - Extremities Exam Extremities exam: normal inspection - Back Exam Back exam: NORMAL INSPECTION - Neurological Exam Neurological exam: Alert, CN II-XII Intact, Normal Gait, Oriented x3, Reflexes Normal - Psychiatric Exam Psychiatric exam: Normal Affect, Normal Mood - Skin Skin Exam: Dry, Intact, Normal Color, Warm Additional comments: multiple tattoos present Discharge Plan - Follow Up Plan Condition: GOOD Disposition: HOME/ ROUTINE Instructions: Lyme Disease (GEN), Pneumococcal Vaccine for Adults (DC), Multiple Sclerosis (DC), Influenza Vaccine (DC) Additional Instructions: 1. Follow up with neurologist Dr. Stewart outpatient within 2 weeks of discharge 2. Follow up with PMD within one week of discharge. Request repeat testing of Lyme's 3. Avoid heavy lifting until appropriate follow up with neurology 4. Take medications as prescribed 5. Return to the hospital if your symptoms worsen or return <Fabian Arredondo - Last Filed: 07/25/17 16:34> Provider - Provider Date of Admission: 07/21/17 22:54 Attending physician: Fabian Arredondo MD Hospital Course - Lab Results Lab Results: Micro Results 07/22/17 15:30 Cerebral Spinal Fluid Gram Stain - Final 07/22/17 15:30 Cerebral Spinal Fluid CSF Culture - Preliminary NO GROWTH AFTER 2 DAYS 07/22/17 06:20 Blood Blood Culture - Preliminary NO GROWTH AFTER 3 DAYS 07/22/17 06:30 Blood Blood Culture - Preliminary NO GROWTH AFTER 3 DAYS Most Recent Lab Values WBC 15.4 10^3/ul (4.5-11.0) H D 07/24/17 06:00 RBC 4.40 10^6/uL (3.5-6.1) 07/24/17 06:00 Hgb 14.1 g/dL (14.0-18.0) 07/24/17 06:00 Hct 40.3 % (42.0-52.0) L 07/24/17 06:00 MCV 91.6 fl (80.0-105.0) 07/24/17 06:00 MCH 32.0 pg (25.0-35.0) 07/24/17 06:00 MCHC 35.0 g/dl (31.0-37.0) 07/24/17 06:00 RDW 12.0 % (11.5-14.5) 07/24/17 06:00 Plt Count 174 10^3/uL (120.0-450.0) 07/24/17 06:00 MPV 11.1 fl (7.0-11.0) H 07/24/17 06:00 Gran % 89.6 % (50.0-68.0) H 07/23/17 06:30 Lymph % (Auto) 6.5 % (22.0-35.0) L 07/23/17 06:30 [place] % (Auto) 3.9 % (1.0-6.0) 07/23/17 06:30 Eos % (Auto) 0.0 % (1.5-5.0) L 07/23/17 06:30 Baso % (Auto) 0.0 % (0.0-3.0) 07/23/17 06:30 Gran # 10.25 (1.4-6.5) H 07/23/17 06:30 Lymph # 0.7 (1.2-3.4) L 07/23/17 06:30 [place] # 0.5 (0.1-0.6) 07/23/17 06:30 Eos # 0.0 (0.0-0.7) 07/23/17 06:30 Baso # 0.00 K/mm3 (0.0-2.0) 07/23/17 06:30 ESR 6 mm/hr (0.0-15.0) 07/22/17 06:20 Sodium 143 mmol/L (132-148) 07/24/17 06:00 Potassium 4.2 mmol/L (3.6-5.0) 07/24/17 06:00 Chloride 107 mmol/L (98-107) 07/24/17 06:00 Carbon Dioxide 28 mmol/L (21-33) 07/24/17 06:00 Anion Gap 12 (10-20) 07/24/17 06:00 BUN 16 mg/dL (7-21) 07/24/17 06:00 Creatinine 0.8 mg/dl (0.8-1.5) 07/24/17 06:00 Est GFR ( Amer) > 60 07/24/17 06:00 Est GFR (Non-Af Amer) > 60 07/24/17 06:00 Random Glucose 161 mg/dL (70-110) H 07/24/17 06:00 Calcium 9.6 mg/dL (8.4-10.5) 07/24/17 06:00 Phosphorus 4.7 mg/dL (2.5-4.5) H 07/22/17 06:20 Magnesium 2.2 mg/dL (1.7-2.2) 07/22/17 06:20 Total Bilirubin 0.3 mg/dL (0.2-1.3) 07/24/17 06:00 AST 18 U/L (17-59) 07/24/17 06:00 ALT 32 U/L (7-56) 07/24/17 06:00 Alkaline Phosphatase 89 U/L (38-126) 07/24/17 06:00 C-React Prot High Sens 0.52 mg/L (1.00-3.00) L 07/22/17 06:20 Total Protein 6.8 g/dL (5.8-8.3) 07/24/17 06:00 Albumin 3.9 g/dL (3.0-4.8) 07/24/17 06:00 Globulin 2.9 gm/dL 07/24/17 06:00 Albumin/Globulin Ratio 1.4 (1.1-1.8) 07/24/17 06:00 Fluid Type Spinal fluid 07/22/17 15:30 CSF Volume 2 mL (0-1) H 07/22/17 15:30 CSF Appearance Clear/colorless (CLEAR) 07/22/17 15:30 CSF WBC 3.0 /uL (0.0-5.0) 07/22/17 15:30 CSF RBC 70.0 /uL (0.0-0.0) H 07/22/17 15:30 CSF Total Cell Counted TEST NOT PERFORMED 07/22/17 15:30 CSF Neutrophils % (0-0) 07/22/17 15:30 CSF Lymphocytes % (0-0) 07/22/17 15:30 CSF Monos/Macrophages TEST NOT PERFORMED 07/22/17 15:30 CSF Comment TEST NOT PERFORMED 07/22/17 15:30 CSF Glucose 68 mg/dL (40-70) 07/22/17 15:30 CSF Total Protein 74.0 mg/dL (12-60) H 07/22/17 15:30 CSF Cryptococcus Ag Negative (NEGATIVE) 07/22/17 16:17 CSF West Nile IgG Ab 1.61 H 07/22/17 16:17 CSF West Nile IgM Ab 0.03 07/22/17 16:17 RPR Nonreactive (NONREACTIVE) 07/22/17 22:21 Lyme Disease Screen <0.90 index 07/22/17 06:20 Lyme Disease IgG Ab (IFA) Negative (NEGATIVE) 07/22/17 06:20 Lyme Disease IgM Ab Equivocal (NEGATIVE) H 07/22/17 06:20 Hepatitis A IgM Ab Negative (NEGATIVE) 07/21/17 00:00 Hep Bs Antigen Negative (NEGATIVE) 07/21/17 00:00 Hep B Core IgM Ab Negative (NEGATIVE) 07/21/17 00:00 Hepatitis C Antibody Negative (NEGATIVE) 07/21/17 00:00 HIV 1&2 Antibody Screen Negative (NEGATIVE) 07/21/17 21:20 Attending/Attestation - Attestation I have personally seen and examined this patient.: Yes I have fully participated in the care of the patient.: Yes I have reviewed all pertinent clinical information, including history, physical exam and plan: Yes Notes (Text): 07/25/17 16:31 Patient was seen and examined with director global medical affairs. Agreed with resident assessment and plan. 27 yo male with presentation of right sided facial numbness and dizziness. 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 No fevers or chills. CT of the head done and MRI as well. Studies strongly suggest demyelinating disease with large white matter abnormalities, patient was evaluated by Neurology and was started on IV methylprednisolon 1 gram daily for 3 days.Patient was also started on Rocephin by ID.CSF studies showed IGM titer elevated for Lyme disease.Patient symptoms has improved.He will follow up with Neurology in 2 weeks.As per ID the IGM level is not specific.Patient will be discharged home and will follow up with Neurology. We will also give him Doxycycline 100 mg PO BID for 14 days Management plan was discussed in detail with patient Education was provided.
--- NOTE | 2017-07-24 23:30 | CP.PCM.PN ---
Subjective - Date & Time of Evaluation Date of Evaluation: 07/24/17 Time of Evaluation: 15:00 - Subjective Subjective: Infectious Disease Follow Up: July 24, 2017 27 yo male with presentation of right sided facial numbness and dizziness. 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 No fevers or chills. CT of the head done and MRI as well. Studies strongly suggest demyelinating disease with large white matter abnormalities. Cannot rule out infectious or viral etiology. For lumbar puncture. RPR, HIV, and Hepatitis studies negative. On IV steroids. No leukocytosis. Afebrile. Lumbar Puncture done today. Elevate protein count in CSF evaluation. Clinically doing well. Numbness and dizziness subsided. Objective - Vital Signs/Intake and Output Vital Signs (last 24 hours): Temp Pulse Resp BP Pulse Ox 98 F 96 H 20 141/80 98 07/24/17 16:12 07/24/17 16:12 07/24/17 16:12 07/24/17 16:12 07/24/17 16:12 Intake and Output: 07/24/17 07/25/17 18:59 06:59 Intake Total 760 Balance 760 - Labs Labs: 07/24/17 06:00 07/24/17 06:00 - Constitutional Appears: Non-toxic, No Acute Distress - Head Exam Head Exam: ATRAUMATIC, NORMOCEPHALIC - Eye Exam Eye Exam: EOMI, PERRL Pupil Exam: NORMAL ACCOMODATION, PERRL - ENT Exam ENT Exam: Mucous Membranes Moist, TM's Normal Bilaterally Additional comments: Deformity of Left ear noted : Perichondrial hematoma - Neck Exam Neck Exam: Full ROM, Normal Inspection - Respiratory Exam Respiratory Exam: Clear to Ausculation Bilateral, NORMAL BREATHING PATTERN. absent: Rales, Rhonchi, Wheezes - Cardiovascular Exam Cardiovascular Exam: REGULAR RHYTHM, RRR, +S1, +S2 - GI/Abdominal Exam GI & Abdominal Exam: Soft, Normal Bowel Sounds. absent: Distended, Tenderness - Extremities Exam Extremities Exam: Full ROM, Normal Inspection - Neurological Exam Neurological Exam: Alert, Awake, CN II-XII Intact, Oriented x3 - Psychiatric Exam Psychiatric exam: Normal Affect, Normal Mood - Skin Skin Exam: Intact, Normal Color Assessment and Plan - Assessment and Plan (Free Text) Assessment: 27 yo male with past medical history of asthma. Found to have white matter disease in MRI. Possible brain lesion. High suspicion for Multiple Myeloma. Orthostatic hypertension. Started on IV steroids. Awaiting lumbar puncture. Continue IV Rocephin for now at 2gm daily. Monitor leukocytosis and fever trends. Rene cultures and cultures of spinal fluid when obtained. Send procalcitonin for evaluation. Lyme studies pending but unlikely diagnosis. On seizure precautions. Overall improving. IgM for Lyme positive but IgM is very nonspecific. Clinically improving. Can continue with doxycycline 100mg BID for 14 days. On Steroids. Can be followed as an outpatient. Thank you for allowing me to participate in the care of the patient, we will follow with you.
[2017-07-25 19:56] LABS: ALBUMIN CSF 46.1 mg/dL (8.0-42.0); IGG CSF 6.2 mg/dL (0.8-7.7)
[2017-07-26 22:20] LABS: ALBUMIN SERUM 4.5 g/dL (3.7-5.1); IGG INDEX CSF 0.55 (<0.66); SYNTHESIS RATE IGG CSF 2.1 mg/24 h (-9.9-3.3)
== END 2017-07-24 18:11 | disposition home or self-care (01) | DRG 13 ==
LOC: ED 17:51 → ERH 22:54 → 5RNO 07-22 00:46
PROVIDERS: ADMIT Internal Medicine; ATTEND Internal Medicine
PROC: 009U3ZX Drainage of Spinal Canal, Percutaneous Approach, Diagnostic (ICD-10-PCS; principal; 2017-07-22)
DX: G35 Multiple sclerosis (principal); C90.00 Multiple myeloma not having achieved remission; A69.20 Lyme disease, unspecified; M51.27 Other intervertebral disc displacement, lumbosacral region; M48.02 Spinal stenosis, cervical region; M51.37 Other intervertebral disc degeneration, lumbosacral region; D72.829 Elevated white blood cell count, unspecified; I10 Essential (primary) hypertension; J45.909 Unspecified asthma, uncomplicated; R29.810 Facial weakness; Z90.49 Acquired absence of other specified parts of digestive tract; Z91.010 Allergy to peanuts; Z91.018 Allergy to other foods

== ENCOUNTER 2017-07-27 10:25 | Inpatient (IN) | payer OTHER ==
[2017-07-27 10:33] VITALS: BMI 27.9
[2017-07-27] MEDS ORDERED: Sodium Chloride 0.9% 1,000 ML IV STA (11:05)
[2017-07-27] MEDS ORDERED: Oxycodone/Acetaminophen 5/325 mg Tab PO STA (11:05)
[2017-07-27 11:46] LABS: BASO # 0.03 K/mm3 (0.0-2.0); BASO % 0.3 % (0.0-3.0); EOS # 0.1 (0.0-0.7); EOS % 1.2 % (1.5-5.0); GRAN # 7.71 (1.4-6.5); GRAN % 73.3 % (50.0-68.0); HEMATOCRIT 45.4 % (42.0-52.0); LYMPH % 18.5 % (22.0-35.0); MEAN CORPUSCULAR HEMOGLOBIN 32.5 pg (25.0-35.0); MEAN CORPUSCULAR HGB CONC 35.7 g/dl (31.0-37.0); MEAN PLATELET VOLUME 11.1 fl (7.0-11.0); MONO # 0.7 (0.1-0.6); MONO % 6.7 % (1.0-6.0); RED CELL DISTRIBUTION WIDTH 12.2 % (11.5-14.5); WHITE BLOOD COUNT 10.5 10^3/ul (4.5-11.0)
[2017-07-27 12:11] LABS: TROPONIN I < 0.01 ng/mL
[2017-07-27 12:34] LABS: ALB/GLOB RATIO 1.5 (1.1-1.8); ALKALINE PHOSPHATASE 69 U/L (38-126); ALT/SGPT 47 U/L (7-56); AST/SGOT 22 U/L (17-59); BILIRUBIN,TOTAL 0.6 mg/dL (0.2-1.3); BLOOD UREA NITROGEN 24 mg/dL (7-21); CARBON DIOXIDE 31 mmol/L (21-33); CHLORIDE 101 mmol/L (98-107); GFR AFRICAN-AMERICAN > 60; GLUCOSE,RANDOM 87 mg/dL (70-110); POTASSIUM 4.2 mmol/L (3.6-5.0); SODIUM 142 mmol/L (132-148); TOTAL PROTEIN 7.3 g/dL (5.8-8.3)
[2017-07-27] MEDS ORDERED: Magnesium Sulfate 2 GM in Sodium Chloride 0.9% 100 ML IVPB ONE (12:37)
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
[2017-07-27 13:59] LABS: INR 0.95 (0.93-1.08); PARTIAL THROMBOPLASTIN TIME 22.6 Seconds (25.1-36.5)
--- NOTE | 2017-07-27 14:51 | CT ---
PROCEDURE: CT HEAD WITHOUT CONTRAST. HISTORY: new onset headache COMPARISON: Head CT without contrast 07/21/2017, brain MRI with and without contrast 07/22/2017. TECHNIQUE: Axial computed tomography images were obtained through the head/brain without intravenous contrast. Radiation dose: Total exam DLP = 775.01 mGy-cm. This CT exam was performed using one or more of the following dose reduction techniques: Automated exposure control, adjustment of the mA and/or kV according to patient size, and/or use of iterative reconstruction technique. FINDINGS: HEMORRHAGE: No intracranial hemorrhage. BRAIN: Stable lucency is appreciate the left parietal lobe deep white matter approaching the vertex with no definitive additional white matter abnormality appreciable. Soft tissue resolution is better under MRI as additional white-matter changes were seen in prior brain MRI 07/22/2017 which did not enhance. In fact, there was no prior abnormal intracranial enhancement on the prior MRI. No interval mass effect or cortical lucency is identified. And there is no interval extra-axial fluid collection appreciated throughout the intracranial contents. VENTRICLES: Unremarkable. No hydrocephalus. CALVARIUM: Unremarkable. PARANASAL SINUSES: Unremarkable as visualized. No significant inflammatory changes. MASTOID AIR CELLS: Unremarkable as visualized. No inflammatory changes. OTHER FINDINGS: Dense left pinna calcifications are reiterated incidentally. IMPRESSION: Stable myelomalacia/ gliosis deep left parietal white matter without interval change greater prior head CT 07/21/2017 or brain MRI 07/22/2017. No new interval findings are seen separate from this locus.
[2017-07-27] MEDS: Apap-Butalbital-Caffeine 325-50-40mg Tab PO PRN ×3 (15:27→23:58)
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
[2017-07-27] MEDS ORDERED: Gadodiamide 287 MG/ML VIAL (15ML) IV ONE (16:15)
[2017-07-27] MEDS ORDERED: Influenza Vaccine 60 mcg/0.5 mL SYR (4YR UP) IM ONE (16:37)
[2017-07-27] MEDS ORDERED: Pneumococcal 23-Valent Vaccine IM ONE (16:37)
--- NOTE | 2017-07-27 17:33 | MRI ---
PROCEDURE: MRI BRAIN WITH AND WITHOUT CONTRAST HISTORY: r/o ms COMPARISON: Comparison is made to the previous study dated 07/22/2017 TECHNIQUE: Multiplanar, multisequence MR images of the brain were obtained with and without intravenous contrast enhancement. FINDINGS: HEMORRHAGE: None DWI: No evidence of an acute or early subacute infarction. BRAIN PARENCHYMA: Foci of hyperintense T2 and FLAIR signal are again noted in the white matter adjacent to the lateral ventricles left more than right. Foci of white matter abnormalities are also noted in the left parietal and in the right inferior cerebellar peduncle. Findings have not significantly changed compared to the previous exam. No atrophy or chronic microvascular ischemic changes. ENHANCEMENT: No abnormal intracranial enhancement. VENTRICLES: Unremarkable. No hydrocephalus. CRANIUM: Unremarkable. ORBITS: Grossly unremarkable. PARANASAL SINUSES/MASTOIDS: Clear VASCULAR SYSTEM: Skull base flow voids intact. OTHER FINDINGS: None . IMPRESSION: No significant interval change when compared to the previous study dated 07/22/2017. Re- demonstration of periventricular white matter abnormalities. The differential diagnosis includes MS. No evidence of diffusion restriction or abnormal enhancement at these lesions.
[2017-07-27] MEDS ORDERED: DOXYCYCLINE MONOHYDRATE 100 MG PO SCH (18:00)
[2017-07-27] MEDS: methylPREDNISolone 1 GM in Sodium Chloride 0.9% 250 ML IV SCH (18:18)
[2017-07-28 06:24] LABS: BASO # 0.01 K/mm3 (0.0-2.0); BASO % 0.1 % (0.0-3.0); GRAN # 10.62 (1.4-6.5); GRAN % 91.9 % (50.0-68.0); LYMPH # 0.8 (1.2-3.4); LYMPH % 6.7 % (22.0-35.0); MEAN CELL VOLUME 90.3 fl (80.0-105.0); MEAN CORPUSCULAR HEMOGLOBIN 31.8 pg (25.0-35.0); MEAN CORPUSCULAR HGB CONC 35.2 g/dl (31.0-37.0); MEAN PLATELET VOLUME 10.7 fl (7.0-11.0); MONO # 0.2 (0.1-0.6); MONO % 1.3 % (1.0-6.0); PLATELET COUNT 171 10^3/uL (120.0-450.0); RED CELL DISTRIBUTION WIDTH 12.2 % (11.5-14.5); WHITE BLOOD COUNT 11.6 10^3/ul (4.5-11.0)
[2017-07-28] MEDS ORDERED: Albuterol HFA 90 mcg/actuation (8 g) IH PRN (07:15)
[2017-07-28] MEDS ORDERED: Albuterol 0.083% Inhal Sol (2.5 mg/3 mL) UD IH PRN (07:17)
--- NOTE | 2017-07-28 08:06 | CARD ---
APPROVED REPORT EKG Measurement Heart [id number] <Conclusion> Normal sinus rhythm Normal ECG
--- NOTE | 2017-07-28 08:10 | CARD ---
APPROVED REPORT EKG Measurement Heart [id number] <Conclusion> Normal sinus rhythm Normal ECG
[2017-07-28 08:12] LABS: ERYTHROCYTE SEDIMENTATION RATE 4 mm/hr (0.0-15.0)
[2017-07-28 08:22] LABS: BAND 5 % (0-2); NEUTROPHIL 90 % (50.0-70.0)
[2017-07-28 08:23] LABS: ANISOCYTOSIS SLIGHT; PLATELET ESTIMATE NORMAL (NORMAL)
[2017-07-28 08:37] LABS: ALB/GLOB RATIO 1.3 (1.1-1.8); ALKALINE PHOSPHATASE 65 U/L (38-126); ALT/SGPT 44 U/L (7-56); AST/SGOT 25 U/L (17-59); BILIRUBIN,TOTAL 0.5 mg/dL (0.2-1.3); BLOOD UREA NITROGEN 17 mg/dL (7-21); CALCIUM 9.5 mg/dL (8.4-10.5); CARBON DIOXIDE 24 mmol/L (21-33); CHLORIDE 104 mmol/L (98-107); GFR AFRICAN-AMERICAN > 60; GLUCOSE,RANDOM 136 mg/dL (70-110); MAGNESIUM 2.4 mg/dL (1.7-2.2); PHOSPHOROUS 3.8 mg/dL (2.5-4.5); POTASSIUM 4.5 mmol/L (3.6-5.0); SODIUM 140 mmol/L (132-148); TOTAL PROTEIN 6.8 g/dL (5.8-8.3)
[2017-07-28] MEDS: methylPREDNISolone 1 GM in Sodium Chloride 0.9% 250 ML IV SCH (09:07)
[2017-07-28] MEDS: Cholecalciferol 400 Intl Units Tab PO SCH (09:08)
[2017-07-28] MEDS: Apap-Butalbital-Caffeine 325-50-40mg Tab PO PRN ×2 (09:26→21:16)
--- NOTE | 2017-07-28 12:18 | CP.PCM.PN ---
<Osorio Tate - Last Filed: 07/28/17 12:07> Subjective - Date & Time of Evaluation Date of Evaluation: 07/28/17 Time of Evaluation: 10:15 - Subjective Subjective: Subjective: Patient seen and examined at bedside. Resting comfortably in bed. No acute overnight events. Patient states headache has improved relative to baseline and numbness of face has resolved. Offers no new complaints at this time. Denies fever, chills, chest pain, shortness of breath, abdominal pain, nausea, vomiting , diarrhea, constipation, and urinary symptoms. Physical Examination: - Constitutional Appears: Well, No Acute Distress - Head Exam Head Exam: ATRAUMATIC, NORMAL INSPECTION, NORMOCEPHALIC - Eye Exam Eye Exam: EOMI, Normal appearance, PERRL - ENT Exam ENT Exam: Mucous Membranes Moist - Neck Exam Neck exam: Positive for: Normal Inspection - Respiratory Exam Respiratory Exam: Clear to Auscultation Bilateral, NORMAL BREATHING PATTERN. absent: Decreased Breath Sounds, Rhonchi, Wheezes, Respiratory Distress - Cardiovascular Exam Cardiovascular Exam: REGULAR RHYTHM, +S1, +S2. absent: Tachycardia, Diastolic murmur, Systolic Murmur - GI/Abdominal Exam GI & Abdominal Exam: Normal Bowel Sounds, Soft. absent: Distended, Firm, Tenderness - Extremities Exam Extremities exam: Positive for: normal inspection. Negative for: pedal edema, tenderness - Neurological Exam Neurological exam: Patient is awake, alert, responds to verbal stimuli, answers questions appropriately, follows commands, and moves extremities past midline - Psychiatric Exam Psychiatric exam: Normal Affect, Normal Mood - Skin Skin Exam: Dry, Intact, Normal Color, Warm Assessment and Plan: Patient is a 27 year old male PMHx of asthma who was admitted for evaluation and treatment of a frontal headache and facial numbness for 2 days. Headache - headache improved - Multiple sclerosis vs Lyme disease vs West Nile virus - patient afebrile and presents with no white count - Head CT 07/27: stable myelomalacia/gliosis deep left parietal white matter without interval change greater prior head CT 07/21 of brain MRI 07/22. No new interval findings are seen separate from this locus; comparted to previous imaging studies - previous CSF findings and imaging studies are reviewed and appreciated - continue Doxycycline 100mg po q12 - Tylenol and Fioricet for headache prn - Zofran 4mg ivp q6 prn - Neurology consult: Dr. Rizwan hunt recommendations- continue patient on methylprednisolone - ID consult: Dr. Valeria hunt recommendations Right sided facial numbness - resolved - Neurology consult: Dr. Rizwan hunt recommendations Hx of asthma - no acute complaints - monitor clinically Prophylaxis - GI Protonix 40mg ivp qdaily - DVT- SCDs; Heparin 5000u sc q12 Patient seen, case discussed with, and plan approved by attending physician, Dr. Mcgee. Objective - Vital Signs/Intake and Output Vital Signs (last 24 hours): Temp Pulse Resp BP Pulse Ox 98.3 F 82 18 119/74 98 07/28/17 06:00 07/28/17 06:00 07/28/17 06:00 07/28/17 06:00 07/28/17 06:00 - Medications Medications: Current Medications Acetaminophen (Tylenol 325mg Tab) 650 mg PO Q4H PRN PRN Reason: Pain, Mild (1-3) Last Admin: 07/27/17 17:26 Dose: 650 mg Acetaminophen/Butalbital/Caffeine (Fioricet) 1 tab PO Q4H PRN PRN Reason: Pain, moderate (4-7) Last Admin: 07/28/17 09:26 Dose: 1 tab Albuterol Sulfate (Albuterol 0.083% Inhal Janessa (2.5 Mg/3 Ml) Ud) 2.5 mg IH [id number] PRN PRN Reason: Shortness of Breath Doxycycline Hyclate (Doryx) 100 mg PO Q12 [facility] Last Admin: 07/28/17 09:08 Dose: 100 mg Heparin Sodium (Porcine) (Heparin) 5,000 units SC Q12 [facility] PRN Reason: Protocol Last Admin: 07/28/17 09:08 Dose: 5,000 units Methylprednisolone 1 gm/ (Sodium Chloride) 250 mls @ 500 mls/hr IV DAILY [facility] Stop: 07/29/17 17:00 Last Admin: 07/28/17 09:07 Dose: 500 mls/hr Ondansetron HCl (Zofran Inj) 4 mg IVP Q6H PRN PRN Reason: Nausea/Vomiting Last Admin: 07/27/17 17:27 Dose: 4 mg Pantoprazole Sodium (Protonix Inj) 40 mg IVP DAILY [facility] Last Admin: 07/28/17 09:09 Dose: 40 mg Vitamin D (Vitamin D 400 Intl Units Tab) 800 intlu PO DAILY [facility] Last Admin: 07/28/17 09:08 Dose: 800 intlu - Labs Labs: PT 10.3 SECONDS (9.4-12.5) 07/27/17 13:30 INR 0.95 (0.93-1.08) 07/27/17 13:30 APTT 22.6 Seconds (25.1-36.5) L 07/27/17 13:30 <Troy Mcgee - Last Filed: 07/28/17 12:33> Objective - Vital Signs/Intake and Output Vital Signs (last 24 hours): Temp Pulse Resp BP Pulse Ox 98.3 F 82 18 119/74 98 07/28/17 06:00 07/28/17 06:00 07/28/17 06:00 07/28/17 06:00 07/28/17 06:00 - Medications Medications: Current Medications Acetaminophen (Tylenol 325mg Tab) 650 mg PO Q4H PRN PRN Reason: Pain, Mild (1-3) Last Admin: 07/27/17 17:26 Dose: 650 mg Acetaminophen/Butalbital/Caffeine (Fioricet) 1 tab PO Q4H PRN PRN Reason: Pain, moderate (4-7) Last Admin: 07/28/17 09:26 Dose: 1 tab Albuterol Sulfate (Albuterol 0.083% Inhal Janessa (2.5 Mg/3 Ml) Ud) 2.5 mg IH [id number] PRN PRN Reason: Shortness of Breath Doxycycline Hyclate (Doryx) 100 mg PO Q12 [facility] Last Admin: 07/28/17 09:08 Dose: 100 mg Heparin Sodium (Porcine) (Heparin) 5,000 units SC Q12 [facility] PRN Reason: Protocol Last Admin: 07/28/17 09:08 Dose: 5,000 units Methylprednisolone 1 gm/ (Sodium Chloride) 250 mls @ 500 mls/hr IV DAILY [facility] Stop: 07/29/17 17:00 Last Admin: 07/28/17 09:07 Dose: 500 mls/hr Ondansetron HCl (Zofran Inj) 4 mg IVP Q6H PRN PRN Reason: Nausea/Vomiting Last Admin: 07/27/17 17:27 Dose: 4 mg Pantoprazole Sodium (Protonix Inj) 40 mg IVP DAILY [facility] Last Admin: 07/28/17 09:09 Dose: 40 mg Vitamin D (Vitamin D 400 Intl Units Tab) 800 intlu PO DAILY [facility] Last Admin: 07/28/17 09:08 Dose: 800 intlu - Labs Labs: PT 10.3 SECONDS (9.4-12.5) 07/27/17 13:30 INR 0.95 (0.93-1.08) 07/27/17 13:30 APTT 22.6 Seconds (25.1-36.5) L 07/27/17 13:30 Attending/Attestation - Attestation I have personally seen and examined this patient.: Yes I have fully participated in the care of the patient.: Yes I have reviewed all pertinent clinical information, including history, physical exam and plan: Yes Notes (Text): 07/28/17 12:31 27 year old male wiht past medical history of asthma who presented with complaint of frontal headache. He was recently admitted last week with complaint of right sided facial weakness. Workup at that time included CT/MRI which was suggestive of demyelinating disease. He also had an LP which showed equivocal IgM titer for Lyme disease and West Nile IgG. Repeat CT head and MRI brain have showed stable findings. Neurology evaluation was appreciated who recommended iv steroids x 3 days. He reports his headache has improved on fioricet prn. He is on po doxycycline and ID follow up was requested. Continue with albuterol prn for history of asthma. Troy Mcgee MD Hospitalist.
--- NOTE | 2017-07-28 13:20 | CP.PCM.PN ---
<Meri South - Last Filed: 07/28/17 22:46> Subjective - Date & Time of Evaluation Date of Evaluation: 07/28/17 Time of Evaluation: 13:19 - Subjective Subjective: PGY-2 Neurology consult note for Dr. Narayanan's service Patient seen and examined at bedside. No acute distress. Patient states headache has improved. He denies any weakness, chest pain, sob, dizziness, lightheadedness. Objective - Vital Signs/Intake and Output Vital Signs (last 24 hours): Temp Pulse Resp BP Pulse Ox 98.3 F 82 18 119/74 98 07/28/17 06:00 07/28/17 06:00 07/28/17 06:00 07/28/17 06:00 07/28/17 06:00 - Medications Medications: Current Medications Acetaminophen (Tylenol 325mg Tab) 650 mg PO Q4H PRN PRN Reason: Pain, Mild (1-3) Last Admin: 07/27/17 17:26 Dose: 650 mg Acetaminophen/Butalbital/Caffeine (Fioricet) 1 tab PO Q4H PRN PRN Reason: Pain, moderate (4-7) Last Admin: 07/28/17 09:26 Dose: 1 tab Albuterol Sulfate (Albuterol 0.083% Inhal Janessa (2.5 Mg/3 Ml) Ud) 2.5 mg IH [id number] PRN PRN Reason: Shortness of Breath Doxycycline Hyclate (Doryx) 100 mg PO Q12 [facility] Last Admin: 07/28/17 09:08 Dose: 100 mg Heparin Sodium (Porcine) (Heparin) 5,000 units SC Q12 [facility] PRN Reason: Protocol Last Admin: 07/28/17 09:08 Dose: 5,000 units Methylprednisolone 1 gm/ (Sodium Chloride) 250 mls @ 500 mls/hr IV DAILY [facility] Stop: 07/29/17 17:00 Last Admin: 07/28/17 09:07 Dose: 500 mls/hr Ondansetron HCl (Zofran Inj) 4 mg IVP Q6H PRN PRN Reason: Nausea/Vomiting Last Admin: 07/27/17 17:27 Dose: 4 mg Pantoprazole Sodium (Protonix Inj) 40 mg IVP DAILY [facility] Last Admin: 07/28/17 09:09 Dose: 40 mg Vitamin D (Vitamin D 400 Intl Units Tab) 800 intlu PO DAILY [facility] Last Admin: 07/28/17 09:08 Dose: 800 intlu - Labs Labs: PT 10.3 SECONDS (9.4-12.5) 07/27/17 13:30 INR 0.95 (0.93-1.08) 07/27/17 13:30 APTT 22.6 Seconds (25.1-36.5) L 07/27/17 13:30 - Constitutional Appears: Well, No Acute Distress - Head Exam Head Exam: ATRAUMATIC, NORMAL INSPECTION, NORMOCEPHALIC - Eye Exam Eye Exam: EOMI, Normal appearance - ENT Exam ENT Exam: Mucous Membranes Moist - Respiratory Exam Respiratory Exam: Clear to Ausculation Bilateral, NORMAL BREATHING PATTERN. absent: Decreased Breath Sounds, Rales, Rhonchi, Wheezes, Respiratory Distress - Cardiovascular Exam Cardiovascular Exam: REGULAR RHYTHM, +S1, +S2. absent: Tachycardia, Murmur - GI/Abdominal Exam GI & Abdominal Exam: Soft, Normal Bowel Sounds. absent: Distended, Tenderness - Neurological Exam Neurological Exam: Alert, Awake, CN II-XII Intact, Oriented x3 Neuro motor strength exam: Left Upper Extremity: 5, Right Upper Extremity: 5, Left Lower Extremity: 5, Right Lower Extremity: 5 - Skin Skin Exam: Dry, Intact, Normal Color, Warm Assessment and Plan - Assessment and Plan (Free Text) Assessment: 27 year old male with PMH of asthma presents to ED with complaint of headache most likely due to MS. 1. headache secondary to possible MS 2. asthma - patient was here recently, MS work up pending - CSF oligclonal band negative - will order NMO, sent out for anti-mog and sjogren's panel - lyme IgM negative - MRI shows demonstration of periventricular white matter abnormalities - vitamin D level, and start vitamin D 800 international units daily - continue 1g solu-medrol for 3 day, day 2 today - fioricet 1 tab q4 hours - upon discharge recommend topamax 25mg HS and fioricet PNR - patient will need to follow up out patient for neurologist for disease modifying therapy <Matteo Narayanan - Last Filed: 07/29/17 05:59> Objective - Vital Signs/Intake and Output Vital Signs (last 24 hours): Temp Pulse Resp BP Pulse Ox 98.3 F 99 H 20 116/57 L 96 07/28/17 16:00 07/28/17 16:00 07/28/17 16:00 07/28/17 16:00 07/28/17 16:00 Intake and Output: 07/28/17 07/29/17 18:59 06:59 Intake Total 840 900 Balance 840 900 - Medications Medications: Current Medications Acetaminophen (Tylenol 325mg Tab) 650 mg PO Q4H PRN PRN Reason: Pain, Mild (1-3) Last Admin: 07/27/17 17:26 Dose: 650 mg Acetaminophen/Butalbital/Caffeine (Fioricet) 1 tab PO Q4H PRN PRN Reason: Pain, moderate (4-7) Last Admin: 07/28/17 21:16 Dose: 1 tab Albuterol Sulfate (Albuterol 0.083% Inhal Janessa (2.5 Mg/3 Ml) Ud) 2.5 mg IH [id number] PRN PRN Reason: Shortness of Breath Heparin Sodium (Porcine) (Heparin) 5,000 units SC Q12 [facility] PRN Reason: Protocol Last Admin: 07/28/17 21:18 Dose: Not Given Methylprednisolone 1 gm/ (Sodium Chloride) 250 mls @ 500 mls/hr IV DAILY [facility] Stop: 07/29/17 17:00 Last Admin: 07/28/17 09:07 Dose: 500 mls/hr Ondansetron HCl (Zofran Inj) 4 mg IVP Q6H PRN PRN Reason: Nausea/Vomiting Last Admin: 07/27/17 17:27 Dose: 4 mg Pantoprazole Sodium (Protonix Inj) 40 mg IVP DAILY [facility] Last Admin: 07/28/17 09:09 Dose: 40 mg Vitamin D (Vitamin D 400 Intl Units Tab) 800 intlu PO DAILY [facility] Last Admin: 07/28/17 09:08 Dose: 800 intlu - Labs Labs: PT 10.3 SECONDS (9.4-12.5) 07/27/17 13:30 INR 0.95 (0.93-1.08) 07/27/17 13:30 APTT 22.6 Seconds (25.1-36.5) L 07/27/17 13:30 Attending/Attestation - Attestation I have personally seen and examined this patient.: Yes I have fully participated in the care of the patient.: Yes I have reviewed all pertinent clinical information, including history, physical exam and plan: Yes
[2017-07-28 19:10] VITALS: RESP 20
--- NOTE | 2017-07-28 21:05 | CP.PCM.CON ---
History of Present Illness - History of Present Illness History of Present Illness: Infectious Disease Consulation: July 28, 2017 27 yo male with presentation of headaches. Likely secondary to MS. Lyme studies essentially negative. No other complaints. PMHx: Asthma PSHx: Cholecystectomy 9 years ago. Allergies: Apples, Peanuts, Pineapple Social Hx: No tobacco, EtOH, or Illicit drug use. 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 Single sexual partner. Active Medications Acetaminophen (Tylenol 325mg Tab) 650 mg PO Q4H PRN PRN Reason: Pain, Mild (1-3) Last Admin: 07/27/17 17:26 Dose: 650 mg Acetaminophen/Butalbital/Caffeine (Fioricet) 1 tab PO Q4H PRN PRN Reason: Pain, moderate (4-7) Last Admin: 07/28/17 09:26 Dose: 1 tab Albuterol Sulfate (Albuterol 0.083% Inhal Janessa (2.5 Mg/3 Ml) Ud) 2.5 mg IH [id number] PRN PRN Reason: Shortness of Breath Doxycycline Hyclate (Doryx) 100 mg PO Q12 [facility] Last Admin: 07/28/17 09:08 Dose: 100 mg Heparin Sodium (Porcine) (Heparin) 5,000 units SC Q12 [facility] PRN Reason: Protocol Last Admin: 07/28/17 09:08 Dose: 5,000 units Methylprednisolone 1 gm/ (Sodium Chloride) 250 mls @ 500 mls/hr IV DAILY [facility] Stop: 07/29/17 17:00 Last Admin: 07/28/17 09:07 Dose: 500 mls/hr Ondansetron HCl (Zofran Inj) 4 mg IVP Q6H PRN PRN Reason: Nausea/Vomiting Last Admin: 07/27/17 17:27 Dose: 4 mg Pantoprazole Sodium (Protonix Inj) 40 mg IVP DAILY [facility] Last Admin: 07/28/17 09:09 Dose: 40 mg Vitamin D (Vitamin D 400 Intl Units Tab) 800 intlu PO DAILY [facility] Last Admin: 07/28/17 09:08 Dose: 800 intlu Family Hx: None given ROS: Dizziness, facial numbness. No fevers, nausea, vomiting, diarrhea, headaches, dizziness, chest pain, abdominal pain, melena, hematuria, hematemesis, hematochezia, depression, anxiety Past Patient History - Infectious Disease Hx of Infectious Diseases: None - Past Social History Smoking Status: Never Smoked - CARDIAC Hx Cardiac Disorders: No - PULMONARY Hx Respiratory Disorders: No - NEUROLOGICAL Hx Multiple Sclerosis: Yes - INTEGUMENTARY Hx Dermatological Problems: Yes (TINEA CORPORIS) - MUSCULOSKELETAL/RHEUMATOLOGICAL Hx Falls: No - PSYCHIATRIC Hx Psychophysiologic Disorder: No Hx Substance Use: No - SURGICAL HISTORY Other/Comment: unspecified abdominal surgery - ANESTHESIA Hx Anesthesia Reactions: No Meds Allergies/Adverse Reactions: Allergies Allergy/AdvReac Type Severity Reaction Status Date / Time apple Allergy RASH Verified 07/27/17 13:48 peanut Allergy RASH Verified 07/27/17 13:48 pineapple Allergy RASH Verified 07/27/17 13:48 - Medications Medications: Current Medications Acetaminophen (Tylenol 325mg Tab) 650 mg PO Q4H PRN PRN Reason: Pain, Mild (1-3) Last Admin: 07/27/17 17:26 Dose: 650 mg Acetaminophen/Butalbital/Caffeine (Fioricet) 1 tab PO Q4H PRN PRN Reason: Pain, moderate (4-7) Last Admin: 07/28/17 09:26 Dose: 1 tab Albuterol Sulfate (Albuterol 0.083% Inhal Janessa (2.5 Mg/3 Ml) Ud) 2.5 mg IH [id number] PRN PRN Reason: Shortness of Breath Doxycycline Hyclate (Doryx) 100 mg PO Q12 [facility] Last Admin: 07/28/17 09:08 Dose: 100 mg Heparin Sodium (Porcine) (Heparin) 5,000 units SC Q12 [facility] PRN Reason: Protocol Last Admin: 07/28/17 09:08 Dose: 5,000 units Methylprednisolone 1 gm/ (Sodium Chloride) 250 mls @ 500 mls/hr IV DAILY [facility] Stop: 07/29/17 17:00 Last Admin: 07/28/17 09:07 Dose: 500 mls/hr Ondansetron HCl (Zofran Inj) 4 mg IVP Q6H PRN PRN Reason: Nausea/Vomiting Last Admin: 07/27/17 17:27 Dose: 4 mg Pantoprazole Sodium (Protonix Inj) 40 mg IVP DAILY [facility] Last Admin: 07/28/17 09:09 Dose: 40 mg Vitamin D (Vitamin D 400 Intl Units Tab) 800 intlu PO DAILY [facility] Last Admin: 07/28/17 09:08 Dose: 800 intlu Physical Exam - Constitutional Appears: Well, No Acute Distress - Head Exam Head Exam: ATRAUMATIC, NORMAL INSPECTION - Eye Exam Eye Exam: EOMI, PERRL Pupil Exam: NORMAL ACCOMODATION, PERRL - ENT Exam ENT Exam: Mucous Membranes Moist, Normal External Ear Exam, TM's Normal Bilaterally - Neck Exam Neck exam: Positive for: Full Rom, Normal Inspection - Respiratory Exam Respiratory Exam: Clear to Auscultation Bilateral, NORMAL BREATHING PATTERN. absent: Rales, Rhonchi, Wheezes - Cardiovascular Exam Cardiovascular Exam: REGULAR RHYTHM, RRR, +S1, +S2 - GI/Abdominal Exam GI & Abdominal Exam: Normal Bowel Sounds, Soft. absent: Distended, Tenderness - Extremities Exam Extremities exam: Positive for: normal inspection. Negative for: pedal edema, tenderness - Neurological Exam Neurological exam: Alert, CN II-XII Intact, Oriented x3 Additional comments: reflexes brisk - Psychiatric Exam Psychiatric exam: Normal Affect, Normal Mood - Skin Skin Exam: Intact, Normal Color Results - Vital Signs Recent Vital Signs: Last Vital Signs Temp 98.3 F 07/28/17 16:00 Pulse 99 H 07/28/17 16:00 Resp 20 07/28/17 16:00 BP 116/57 L 07/28/17 16:00 Pulse Ox 96 07/28/17 16:00 - Labs Result Diagrams: 07/28/17 06:00 07/28/17 06:00 Assessment & Plan - Assessment and Plan (Free Text) Assessment: Patient with headaches. Strongly suspected of Multiple Sclerosis. Lyme studies essentially negative. Can stop Doxycycline dosing. Supportive care. Would not start other antibiotics at this time. Thank you for allowing me to participate in the care of the patient, we will follow with you.
--- NOTE | 2017-07-29 06:07 | CP.PCM.PCO ---
Physician Communication Note - Physician Communication Note Physician Communication Note: dc home and f/u as outpt. c/w topamax 25 mg qhs for CASTLE and fioricet prn.
[2017-07-29 07:18] LABS: BASO # 0.01 K/mm3 (0.0-2.0); BASO % 0.1 % (0.0-3.0); GRAN # 17.39 (1.4-6.5); GRAN % 88.9 % (50.0-68.0); HEMATOCRIT 41.7 % (42.0-52.0); LYMPH % 5.1 % (22.0-35.0); MEAN CELL VOLUME 91.4 fl (80.0-105.0); MEAN CORPUSCULAR HEMOGLOBIN 31.8 pg (25.0-35.0); MEAN CORPUSCULAR HGB CONC 34.8 g/dl (31.0-37.0); MEAN PLATELET VOLUME 10.8 fl (7.0-11.0); MONO # 1.2 (0.1-0.6); MONO % 5.9 % (1.0-6.0); RED CELL DISTRIBUTION WIDTH 12.5 % (11.5-14.5); WHITE BLOOD COUNT 19.5 10^3/ul (4.5-11.0)
[2017-07-29 07:26] LABS: ALB/GLOB RATIO 1.3 (1.1-1.8); ALKALINE PHOSPHATASE 61 U/L (38-126); ALT/SGPT 52 U/L (7-56); AST/SGOT 26 U/L (17-59); BILIRUBIN,TOTAL 0.5 mg/dL (0.2-1.3); BLOOD UREA NITROGEN 19 mg/dL (7-21); CALCIUM 9.4 mg/dL (8.4-10.5); CARBON DIOXIDE 29 mmol/L (21-33); CHLORIDE 106 mmol/L (98-107); GFR AFRICAN-AMERICAN > 60; GLUCOSE,RANDOM 122 mg/dL (70-110); POTASSIUM 4.5 mmol/L (3.6-5.0); SODIUM 142 mmol/L (132-148); TOTAL PROTEIN 6.6 g/dL (5.8-8.3)
[2017-07-29 07:43] VITALS: BP 131/81; PULSE 74; TEMP 97.9; O2SAT 99
[2017-07-29] MEDS: methylPREDNISolone 1 GM in Sodium Chloride 0.9% 250 ML IV SCH (10:36)
--- NOTE | 2017-07-29 10:36 | CP.PCM.DIS ---
<Roxie Whitten - Last Filed: 07/29/17 10:25> Provider - Provider Date of Admission: 07/28/17 10:52 Attending physician: Troy Mcgee MD Primary care physician: Raffi Stewart MD Consults: Neuro: Dr. Pratibha Narayanan ID: Dr. Todd Time Spent in preparation of Discharge (in minutes): 45 Hospital Course - Lab Results Lab Results: Most Recent Lab Values WBC 19.5 10^3/ul (4.5-11.0) H D 07/29/17 06:45 RBC 4.56 10^6/uL (3.5-6.1) 07/29/17 06:45 Hgb 14.5 g/dL (14.0-18.0) 07/29/17 06:45 Hct 41.7 % (42.0-52.0) L 07/29/17 06:45 MCV 91.4 fl (80.0-105.0) 07/29/17 06:45 MCH 31.8 pg (25.0-35.0) 07/29/17 06:45 MCHC 34.8 g/dl (31.0-37.0) 07/29/17 06:45 RDW 12.5 % (11.5-14.5) 07/29/17 06:45 Plt Count 167 10^3/uL (120.0-450.0) 07/29/17 06:45 MPV 10.8 fl (7.0-11.0) 07/29/17 06:45 Gran % 88.9 % (50.0-68.0) H 07/29/17 06:45 Lymph % (Auto) 5.1 % (22.0-35.0) L 07/29/17 06:45 Dyer % (Auto) 5.9 % (1.0-6.0) 07/29/17 06:45 Eos % (Auto) 0.0 % (1.5-5.0) L 07/29/17 06:45 Baso % (Auto) 0.1 % (0.0-3.0) 07/29/17 06:45 Gran # 17.39 (1.4-6.5) H 07/29/17 06:45 Lymph # 1.0 (1.2-3.4) L 07/29/17 06:45 Dyer # 1.2 (0.1-0.6) H 07/29/17 06:45 Eos # 0.0 (0.0-0.7) 07/29/17 06:45 Baso # 0.01 K/mm3 (0.0-2.0) 07/29/17 06:45 Neutrophils % (Manual) 90 % (50.0-70.0) H 07/28/17 06:00 Band Neutrophils % 5 % (0-2) H 07/28/17 06:00 Lymphocytes % (Manual) 4 % (22.0-35.0) L 07/28/17 06:00 Monocytes % (Manual) 1 % (1.0-6.0) 07/28/17 06:00 Platelet Evaluation Normal (NORMAL) 07/28/17 06:00 Anisocytosis (manual) Slight 07/28/17 06:00 ESR 4 mm/hr (0.0-15.0) 07/28/17 06:00 PT 10.3 SECONDS (9.4-12.5) 07/27/17 13:30 INR 0.95 (0.93-1.08) 07/27/17 13:30 APTT 22.6 Seconds (25.1-36.5) L 07/27/17 13:30 Sodium 142 mmol/L (132-148) 07/29/17 06:45 Potassium 4.5 mmol/L (3.6-5.0) 07/29/17 06:45 Chloride 106 mmol/L (98-107) 07/29/17 06:45 Carbon Dioxide 29 mmol/L (21-33) 07/29/17 06:45 Anion Gap 12 (10-20) 07/29/17 06:45 BUN 19 mg/dL (7-21) 07/29/17 06:45 Creatinine 0.9 mg/dl (0.8-1.5) 07/29/17 06:45 Est GFR ( Amer) > 60 07/29/17 06:45 Est GFR (Non-Af Amer) > 60 07/29/17 06:45 Random Glucose 122 mg/dL (70-110) H 07/29/17 06:45 Calcium 9.4 mg/dL (8.4-10.5) 07/29/17 06:45 Phosphorus 3.8 mg/dL (2.5-4.5) 07/28/17 06:00 Magnesium 2.4 mg/dL (1.7-2.2) H 07/28/17 06:00 Total Bilirubin 0.5 mg/dL (0.2-1.3) 07/29/17 06:45 AST 26 U/L (17-59) 07/29/17 06:45 ALT 52 U/L (7-56) 07/29/17 06:45 Alkaline Phosphatase 61 U/L (38-126) 07/29/17 06:45 Lactate Dehydrogenase 468 U/L (333-699) 07/27/17 11:27 Total Creatine Kinase 48 U/L (35-230) 07/27/17 11:27 Troponin I < 0.01 ng/mL 07/27/17 11:27 C-React Prot High Sens 0.23 mg/L (1.00-3.00) L 07/27/17 17:00 Total Protein 6.6 g/dL (5.8-8.3) 07/29/17 06:45 Albumin 3.8 g/dL (3.0-4.8) 07/29/17 06:45 Globulin 2.8 gm/dL 07/29/17 06:45 Albumin/Globulin Ratio 1.3 (1.1-1.8) 07/29/17 06:45 25-OH Vitamin D Total < 12.8 NG/ML (30.0-100.0) L 07/28/17 06:15 - Hospital Course Hospital Course: Upon Admission 27 year old male PMHx asthma presents to ED with complaint of frontal headache for 2 days. He was recently discharged from [facility] on 07/24 after workup for dizziness and facial numbness and was treated with 3 days of IV steroids for suspected multiple sclerosis and discharged on doxycycline for positive Lyme titers. He took first dose of doxycycline last night. Headache is new since discharge, started 2 days ago, constant since last night. He rates pain 8/10, nothing making it better or worse. He tried OTC Advil which didn't help. He also admits to generalized weakness and some right-sided facial numbness and some right arm weakness. He denied any fever/chills, photophobia, dizziness, vision changes, tinnitus, nuchal rigidity, sore throat, shortness of breath, cough, chest pain, palpitations, abdominal pain, nausea/vomiting, urinary symptoms, changes in bowels, leg pain/swelling, and rash/lesions. Denies any previous occurrence, prior concussion, recent travel, recent hiking, and sick contacts. Patient admitted to med/surg. Neurology and ID were consulted. In the ED, patient given Decadron, Keppra, Mag sulfate, and Reglan in ED by neurology Dr. Stewart. Patient was started on IV steroids and Doxycycline due to concern of MS and Lyme respectively. Head CT 07/27 showed stable myelomalacia/gliosis deep left parietal white matter without interval change greater prior head CT 07/21 of brain MRI 07/22. No new interval findings are seen separate from this locus. Brain MRI 07/27 showed no interval change from previous admission that had shown confluent white matter abnormalities in the occipital and temporal horns of both ventricles. Large white matter lesion in the left parietal white matter. These is also a lesion in the right inferior cerebellar peduncle. Findings suspicious for demyelinating disease.EEG 07/22 was unremarkable. Patient's right sided facial numbness resolved. Lyme titers were negative and patient's antibiotic course was discontinued. On day of discharge, patient was deemed medically stable for discharge. 1) Headache: likely MS - patient to f/u with neuro outpatient 2) R sided facial weakness: resolved 3) asthma: no acute issues- chronic Upon Discharge Patient stable for discharge as per team Patient to take medications as prescribed: -Fioricet 1 tab po q6 prn pain Disp#12 -Vitamin D 800IU po qdaily Disp#30 -Topiramate 25mg po qhs Disp#30 Patient to follow up with Neurology within 7 days of discharge. Patient to also follow up with PMD within 10 days of discharge. If symptoms persist or worsen patient to visit ED immediately. Instructions discussed in detail with patient who understands and agrees. Discharge Exam - Head Exam Head Exam: ATRAUMATIC, NORMAL INSPECTION, NORMOCEPHALIC - Eye Exam Eye Exam: EOMI, Normal appearance, PERRL. absent: Conjunctival injection, Scleral icterus Pupil Exam: NORMAL ACCOMODATION - ENT Exam ENT Exam: Mucous Membranes Moist - Neck Exam Neck exam: Full Rom, Normal Inspection - Respiratory Exam Respiratory Exam: Clear to PA & Lateral, NORMAL BREATHING PATTERN, UNREMARKABLE. absent: Accessory Muscle Use, Rales, Rhonchi, Wheezes, Respiratory Distress - Cardiovascular Exam Cardiovascular Exam: REGULAR RHYTHM, RRR, +S1, +S2. absent: Systolic Murmur - GI/Abdominal Exam GI & Abdominal Exam: Normal Bowel Sounds, Soft. absent: Firm, Guarding, Rigid, Tenderness - Extremities Exam Extremities exam: normal capillary refill, normal inspection, pedal pulses present - Back Exam Back exam: NORMAL INSPECTION. absent: rash noted - Neurological Exam Neurological exam: Alert, CN II-XII Intact, Oriented x3 - Psychiatric Exam Psychiatric exam: Normal Affect, Normal Mood - Skin Skin Exam: Dry, Intact, Normal Color, Warm Discharge Plan - Discharge Medications Prescriptions: RX: Acetaminophen/Butalbital/Caf [Fioricet] 1 tab PO Q4H PRN #30 tab PRN Reason: Pain, Moderate (4-7) Acetaminophen/Butalbital/Caf [Fioricet] 1 tab PO Q6H PRN #12 tab PRN Reason: Pain, Moderate (4-7) RX: Cholecalciferol 400 Intl Units [Vitamin D 400 Intl Units Tab] 800 intlu PO DAILY #30 tab Topiramate [Topamax] 25 mg PO HS #30 tab - Follow Up Plan Condition: GOOD Disposition: HOME/ ROUTINE Instructions: Dizziness (GEN) Additional Instructions: Patient stable for discharge as per team Patient to take medications as prescribed: -Fioricet 1 tab po q6 prn pain Disp#12 -Vitamin D 800IU po qdaily Disp#30 -Topiramate 25mg po qhs Disp#30 Patient to follow up with Neurology within 7 days of discharge. Patient to also follow up with PMD within 10 days of discharge. If symptoms persist or worsen patient to visit ED immediately. Instructions discussed in detail with patient who understands and agrees. Referrals: Jesús Narayanan MD [Staff Provider] - Raffi Stewart MD [Primary Care Provider] - <Troy Mcgee - Last Filed: 07/29/17 10:43> Provider - Provider Date of Admission: 07/28/17 10:52 Attending physician: Troy Mcgee MD Primary care physician: Raffi Stewart MD Hospital Course - Lab Results Lab Results: Most Recent Lab Values WBC 19.5 10^3/ul (4.5-11.0) H D 11/23/17 06:45 RBC 4.56 10^6/uL (3.5-6.1) 07/29/17 06:45 Hgb 14.5 g/dL (14.0-18.0) 07/29/17 06:45 Hct 41.7 % (42.0-52.0) L 07/29/17 06:45 MCV 91.4 fl (80.0-105.0) 07/29/17 06:45 MCH 31.8 pg (25.0-35.0) 07/29/17 06:45 MCHC 34.8 g/dl (31.0-37.0) 07/29/17 06:45 RDW 12.5 % (11.5-14.5) 07/29/17 06:45 Plt Count 167 10^3/uL (120.0-450.0) 07/29/17 06:45 MPV 10.8 fl (7.0-11.0) 07/29/17 06:45 Gran % 88.9 % (50.0-68.0) H 07/29/17 06:45 Lymph % (Auto) 5.1 % (22.0-35.0) L 07/29/17 06:45 Dyer % (Auto) 5.9 % (1.0-6.0) 07/29/17 06:45 Eos % (Auto) 0.0 % (1.5-5.0) L 07/29/17 06:45 Baso % (Auto) 0.1 % (0.0-3.0) 07/29/17 06:45 Gran # 17.39 (1.4-6.5) H 07/29/17 06:45 Lymph # 1.0 (1.2-3.4) L 07/29/17 06:45 Dyer # 1.2 (0.1-0.6) H 07/29/17 06:45 Eos # 0.0 (0.0-0.7) 07/29/17 06:45 Baso # 0.01 K/mm3 (0.0-2.0) 07/29/17 06:45 Neutrophils % (Manual) 90 % (50.0-70.0) H 07/28/17 06:00 Band Neutrophils % 5 % (0-2) H 07/28/17 06:00 Lymphocytes % (Manual) 4 % (22.0-35.0) L 07/28/17 06:00 Monocytes % (Manual) 1 % (1.0-6.0) 07/28/17 06:00 Platelet Evaluation Normal (NORMAL) 07/28/17 06:00 Anisocytosis (manual) Slight 07/28/17 06:00 ESR 4 mm/hr (0.0-15.0) 07/28/17 06:00 PT 10.3 SECONDS (9.4-12.5) 07/27/17 13:30 INR 0.95 (0.93-1.08) 07/27/17 13:30 APTT 22.6 Seconds (25.1-36.5) L 07/27/17 13:30 Sodium 142 mmol/L (132-148) 07/29/17 06:45 Potassium 4.5 mmol/L (3.6-5.0) 07/29/17 06:45 Chloride 106 mmol/L (98-107) 07/29/17 06:45 Carbon Dioxide 29 mmol/L (21-33) 07/29/17 06:45 Anion Gap 12 (10-20) 07/29/17 06:45 BUN 19 mg/dL (7-21) 07/29/17 06:45 Creatinine 0.9 mg/dl (0.8-1.5) 07/29/17 06:45 Est GFR ( Amer) > 60 07/29/17 06:45 Est GFR (Non-Af Amer) > 60 07/29/17 06:45 Random Glucose 122 mg/dL (70-110) H 07/29/17 06:45 Calcium 9.4 mg/dL (8.4-10.5) 07/29/17 06:45 Phosphorus 3.8 mg/dL (2.5-4.5) 07/28/17 06:00 Magnesium 2.4 mg/dL (1.7-2.2) H 07/28/17 06:00 Total Bilirubin 0.5 mg/dL (0.2-1.3) 07/29/17 06:45 AST 26 U/L (17-59) 07/29/17 06:45 ALT 52 U/L (7-56) 07/29/17 06:45 Alkaline Phosphatase 61 U/L (38-126) 07/29/17 06:45 Lactate Dehydrogenase 468 U/L (333-699) 07/27/17 11:27 Total Creatine Kinase 48 U/L (35-230) 07/27/17 11:27 Troponin I < 0.01 ng/mL 07/27/17 11:27 C-React Prot High Sens 0.23 mg/L (1.00-3.00) L 07/27/17 17:00 Total Protein 6.6 g/dL (5.8-8.3) 07/29/17 06:45 Albumin 3.8 g/dL (3.0-4.8) 07/29/17 06:45 Globulin 2.8 gm/dL 07/29/17 06:45 Albumin/Globulin Ratio 1.3 (1.1-1.8) 07/29/17 06:45 25-OH Vitamin D Total < 12.8 NG/ML (30.0-100.0) L 07/28/17 06:15 Attending/Attestation - Attestation I have personally seen and examined this patient.: Yes I have fully participated in the care of the patient.: Yes I have reviewed all pertinent clinical information, including history, physical exam and plan: Yes Notes (Text): 07/29/17 10:39 27 year old male with past medical history of asthma who presented with complaint of frontal headache. He was recently admitted last week with complaint of right sided facial weakness. Workup at that time included CT/MRI which was suggestive of demyelinating disease. Repeat CT head and MRI brain have showed stable findings. He was seen by neurology and started on fioricet and iv steroids x 3 days with improvement of his headache. He was also seen by ID who recommended to discontinue his po doxycycline. Patient is discharged home to follow up with his pmd or [facility]. Follow up with neurology, Dr. Narayanan. Troy Mcgee MD Hospitalist.
[2017-07-29] MEDS: Cholecalciferol 400 Intl Units Tab PO SCH (10:37)
--- NOTE | 2017-07-29 12:19 | CP.PCM.PN ---
Subjective - Date & Time of Evaluation Date of Evaluation: 07/29/17 Time of Evaluation: 10:45 - Subjective Subjective: Infectious Disease Follow Up: July 29, 2017 27 yo male with presentation of headaches. Likely secondary to MS. Lyme studies essentially negative. No other complaints. Improved with steroid administration. Objective - Vital Signs/Intake and Output Vital Signs (last 24 hours): Temp Pulse Resp BP Pulse Ox 97.9 F 74 20 131/81 99 07/29/17 06:00 07/29/17 06:00 07/29/17 06:00 07/29/17 06:00 07/29/17 06:00 Intake and Output: 07/29/17 07/29/17 06:59 18:59 Intake Total 1260 Balance 1260 - Medications Medications: Current Medications Acetaminophen (Tylenol 325mg Tab) 650 mg PO Q4H PRN PRN Reason: Pain, Mild (1-3) Last Admin: 07/27/17 17:26 Dose: 650 mg Acetaminophen/Butalbital/Caffeine (Fioricet) 1 tab PO Q4H PRN PRN Reason: Pain, moderate (4-7) Last Admin: 07/28/17 21:16 Dose: 1 tab Albuterol Sulfate (Albuterol 0.083% Inhal Janessa (2.5 Mg/3 Ml) Ud) 2.5 mg IH [id number] PRN PRN Reason: Shortness of Breath Heparin Sodium (Porcine) (Heparin) 5,000 units SC Q12 XAVIER PRN Reason: Protocol Last Admin: 07/29/17 10:43 Dose: Not Given Methylprednisolone 1 gm/ (Sodium Chloride) 250 mls @ 500 mls/hr IV DAILY XAVIER Stop: 07/29/17 17:00 Last Admin: 07/29/17 10:36 Dose: 500 mls/hr Ondansetron HCl (Zofran Inj) 4 mg IVP Q6H PRN PRN Reason: Nausea/Vomiting Last Admin: 07/27/17 17:27 Dose: 4 mg Pantoprazole Sodium (Protonix Inj) 40 mg IVP DAILY XAVIER Last Admin: 07/29/17 10:37 Dose: 40 mg Vitamin D (Vitamin D 400 Intl Units Tab) 800 intlu PO DAILY XAVIER Last Admin: 07/29/17 10:37 Dose: 800 intlu - Labs Labs: 07/29/17 06:45 07/29/17 06:45 PT 10.3 SECONDS (9.4-12.5) 07/27/17 13:30 INR 0.95 (0.93-1.08) 07/27/17 13:30 APTT 22.6 Seconds (25.1-36.5) L 07/27/17 13:30 - Constitutional Appears: Non-toxic, No Acute Distress, Chronically Ill - Head Exam Head Exam: ATRAUMATIC, NORMOCEPHALIC - Eye Exam Eye Exam: EOMI, PERRL Pupil Exam: NORMAL ACCOMODATION, PERRL - ENT Exam ENT Exam: Mucous Membranes Moist, Normal External Ear Exam, TM's Normal Bilaterally - Neck Exam Neck Exam: Full ROM, Normal Inspection - Respiratory Exam Respiratory Exam: Clear to Ausculation Bilateral, NORMAL BREATHING PATTERN. absent: Rales, Rhonchi, Wheezes - Cardiovascular Exam Cardiovascular Exam: REGULAR RHYTHM, RRR, +S1, +S2 - GI/Abdominal Exam GI & Abdominal Exam: Soft, Normal Bowel Sounds. absent: Distended, Tenderness - Extremities Exam Extremities Exam: Full ROM, Normal Inspection - Neurological Exam Neurological Exam: Alert, Awake, CN II-XII Intact, Oriented x3 - Psychiatric Exam Psychiatric exam: Normal Affect, Normal Mood - Skin Skin Exam: Intact, Normal Color Assessment and Plan - Assessment and Plan (Free Text) Assessment: Patient with headaches improved with steroids. Strongly suspected of Multiple Sclerosis. Lyme studies essentially negative. Stopped Doxycycline dosing. Supportive care. Would not start other antibiotics at this time. Can be discharged from ID perspective. Thank you for allowing me to participate in the care of the patient, we will follow with you.
[2017-07-30 19:49] LABS: Interpretation Negative (Negative)
== END 2017-07-29 12:39 | disposition home or self-care (01) | DRG 13 ==
LOC: ED 10:25 → ERH 13:23 → 3RNO 16:59 → OBSVTOIN 07-28 10:52
PROVIDERS: ADMIT Internal Medicine; ATTEND Internal Medicine
DX: G35 Multiple sclerosis (principal); J45.909 Unspecified asthma, uncomplicated; R29.810 Facial weakness; G95.89 Other specified diseases of spinal cord; Z82.49 Family history of ischemic heart disease and other diseases of the circulatory system